=== PATIENT | female | born 1970 | race Two or more races ===

== ENCOUNTER → 2021-03-07 10:17 | Outpatient (BNVA) | payer OTHER, MEDICAID, SELFPAY | PROVIDERS: Visit Provider Family Medicine Adult Medicine | DX: M47.816 Spondylosis without myelopathy or radiculopathy, lumbar region (principal); M51.36 Other intervertebral disc degeneration, lumbar region | CPT/HCPCS: 99202 ==

== ENCOUNTER → 2021-03-21 09:19 | Outpatient (BNVA) | payer OTHER, MEDICAID, SELFPAY | PROVIDERS: Visit Provider Family Medicine Adult Medicine | DX: F11.99 Opioid use, unspecified with unspecified opioid-induced disorder (principal); M51.36 Other intervertebral disc degeneration, lumbar region; M47.816 Spondylosis without myelopathy or radiculopathy, lumbar region | CPT/HCPCS: 99212 ==

== ENCOUNTER → 2021-04-23 15:22 | Outpatient (BNVA) | payer OTHER, SELFPAY | PROVIDERS: Visit Provider Family Medicine Adult Medicine | DX: Z51.81 Encounter for therapeutic drug level monitoring (principal); M47.816 Spondylosis without myelopathy or radiculopathy, lumbar region; M51.36 Other intervertebral disc degeneration, lumbar region | CPT/HCPCS: 99212 ==

== ENCOUNTER → 2021-05-21 14:08 | Outpatient (BNVA) | payer OTHER, MEDICAID, SELFPAY | PROVIDERS: Visit Provider Family Medicine Adult Medicine | DX: G89.29 Other chronic pain (principal); M51.36 Other intervertebral disc degeneration, lumbar region; M47.816 Spondylosis without myelopathy or radiculopathy, lumbar region | CPT/HCPCS: 99212 ==

== ENCOUNTER → 2021-06-27 13:18 | Outpatient (BNVA) | payer OTHER, MEDICAID, SELFPAY | PROVIDERS: Visit Provider Family Medicine Adult Medicine | DX: Z51.81 Encounter for therapeutic drug level monitoring (principal); M51.36 Other intervertebral disc degeneration, lumbar region; M47.816 Spondylosis without myelopathy or radiculopathy, lumbar region | CPT/HCPCS: 99212 ==

== ENCOUNTER → 2021-07-30 14:26 | Outpatient (BNVA) | payer OTHER, MEDICAID, SELFPAY | PROVIDERS: PCP Physician Assistant Medical; Visit Provider Nurse Practitioner Family | DX: Z51.81 Encounter for therapeutic drug level monitoring (principal); M47.816 Spondylosis without myelopathy or radiculopathy, lumbar region; M25.571 Pain in right ankle and joints of right foot; G89.29 Other chronic pain | CPT/HCPCS: 99212 ==

== ENCOUNTER → 2021-08-28 13:06 | Outpatient (BNVA) | payer OTHER, MEDICAID, SELFPAY | PROVIDERS: PCP Physician Assistant Medical; Visit Provider Nurse Practitioner Family | DX: Z51.81 Encounter for therapeutic drug level monitoring (principal); F11.20 Opioid dependence, uncomplicated; M53.3 Sacrococcygeal disorders, not elsewhere classified; M25.571 Pain in right ankle and joints of right foot; M47.816 Spondylosis without myelopathy or radiculopathy, lumbar region; G89.29 Other chronic pain | CPT/HCPCS: 99212 ==

== ENCOUNTER → 2021-09-25 13:30 | Outpatient (BNVA) | payer OTHER, MEDICAID, SELFPAY | PROVIDERS: PCP Physician Assistant Medical; Visit Provider Nurse Practitioner Family | DX: M47.816 Spondylosis without myelopathy or radiculopathy, lumbar region (principal); M51.36 Other intervertebral disc degeneration, lumbar region; G89.29 Other chronic pain; M25.571 Pain in right ankle and joints of right foot; M53.3 Sacrococcygeal disorders, not elsewhere classified; Z88.1 Allergy status to other antibiotic agents; Z88.0 Allergy status to penicillin | CPT/HCPCS: 99212 ==

== ENCOUNTER 2021-10-10 10:09 | Day surgery (SDC) | payer OTHER, SELFPAY ==
[2021-10-04 20:08] VITALS: BMI 25.7
--- NOTE | 2021-10-09 10:19 | HO.ANESPROP2 ---
Documented by User: Macy Alexis NP 10/09/21 10:20 HPI - Anesthesia Eval Consult details Narrative: 50yo F for Right Diagnostic Sacroiliac Joint Innervation Injection PMFSH Active Problems Active Problems: All Active Problems (Updated 10/04/21 @ 20:10 by Radha Macdonald RN) Chronic pain of right ankle (Acute) Sacroiliac joint pain (Acute) Other intervertebral disc degeneration, lumbar region (Acute) Spondylosis without myelopathy or radiculopathy, lumbar region (Acute) Past Medical History Medical History Anxiety Back pain Depression Hypothyroidism Other intervertebral disc degeneration, lumbar region Right ankle sprain Smoker Spondylosis without myelopathy or radiculopathy, lumbar region Surgical History Surgical History H/O tubal ligation H/O: hysterectomy History of laparoscopic cholecystectomy Social History Social History Patient Tobacco Use Status: Current everyday Tobacco user Tobacco use type: Cigarette Cigarettes Per Day: 12 Smoked in Last 30 Days: Yes Use of substances other than those prescribed or required for medical reasons: No Are you DNR?: No Advance Directives: No Advance Directives Information Provided: No Advance Directives on File: No Recently lost weight without trying: No Nutrition Risks: No Nutritional Risk Patient : No Meds Allergies Allergy/AdvReac Type Severity Reaction Status Date / Time penicillin G Allergy Unknown Verified 09/25/21 13:49 Home Medications Medication Instructions Recorded Confirmed Last Taken Type duloxetine 30 mg capsule,delayed 30 mg PO DAILY 03/07/21 10/04/21 Unknown History release meloxicam 15 mg tablet 15 mg PO DAILY 03/07/21 10/04/21 10/07/21 History baclofen 10 mg tablet 1 tab PO TID PRN 10/04/21 10/04/21 Unknown History cyclobenzaprine 5 mg tablet 5 mg PO BEDTIME 10/04/21 10/04/21 Unknown History levothyroxine 100 mcg tablet 1 tab PO DAILY 10/04/21 10/04/21 10/03/21 History mirtazapine 7.5 mg tablet 7.5 mg PO DAILY 10/04/21 10/04/21 Unknown History sennosides 8.6 mg tablet (Senokot) 8.6 mg PO DAILY 10/04/21 10/04/21 Unknown History Exam Exam Date and Time: October 09, 2021 1019 Height,Weight and Vital Signs: Height 5 ft 2 in Weight 63.957 kg Assessment and Plan Assessment Anesthesia Assessment: Chart Reviewed Documented by User: Lizbet Rushing MD 10/10/21 10:46 [facility] Past Medical History Medical History Anxiety Back pain Depression Hypothyroidism Other intervertebral disc degeneration, lumbar region Right ankle sprain Smoker Spondylosis without myelopathy or radiculopathy, lumbar region Surgical History Surgical History H/O tubal ligation H/O: hysterectomy History of laparoscopic cholecystectomy History of Problems with Anesthesia: No Social History Social History Patient Tobacco Use Status: Current everyday Tobacco user Tobacco use type: Cigarette Cigarettes Per Day: 12 Smoked in Last 30 Days: Yes Use of substances other than those prescribed or required for medical reasons: No Are you DNR?: No Advance Directives: No Advance Directives Information Provided: No Advance Directives on File: No Recently lost weight without trying: No Nutrition Risks: No Nutritional Risk Patient : No Meds Allergies Allergy/AdvReac Type Severity Reaction Status Date / Time penicillin G Allergy Unknown Verified 09/25/21 13:49 Home Medications Medication Instructions Recorded Confirmed Last Taken Type duloxetine 30 mg capsule,delayed 30 mg PO DAILY 03/07/21 10/04/21 Unknown History release meloxicam 15 mg tablet 15 mg PO DAILY 03/07/21 10/04/21 10/07/21 History baclofen 10 mg tablet 1 tab PO TID PRN 10/04/21 10/04/21 Unknown History cyclobenzaprine 5 mg tablet 5 mg PO BEDTIME 10/04/21 10/04/21 Unknown History levothyroxine 100 mcg tablet 1 tab PO DAILY 10/04/21 10/04/21 10/03/21 History mirtazapine 7.5 mg tablet 7.5 mg PO DAILY 10/04/21 10/04/21 Unknown History sennosides 8.6 mg tablet (Senokot) 8.6 mg PO DAILY 10/04/21 10/04/21 Unknown History Exam Airway Mallampati Class: II TM Dist: >3cm Neck ROM: Full Loose/Missing/Broken Teeth: No Heart: RRR Lungs: CTA Assessment and Plan Assessment Anesthesia Assessment: Anesthesia Plan Discussed Final Anesthetic Review History of Problems with Anesthesia: No NPO: Yes ASA Class: II Final Preanesthetic Review: Meds/Allgs Chart Reviewed and Consent Obtained/Reviewed Patient Risk: Low Procedure Risk: Low Anesthetic Plan Anesthetic Plan: MAC: Disposition: Standard PACU
--- NOTE | ~2021-10-10 | FL_ITS ---
EXAMINATION: XR FLUOROSCOPY WITH IMAGES CLINICAL INFORMATION: Right SI joint pain. COMPARISON: None. TECHNIQUE: Fluoroscopy performed by Dr. Demetri Edmondson. Fluoroscopy time: 0.5 minutes DAP: 4.83 mGycm2 Images: 6 FINDINGS: There are contrast opacifying right SI joint, soft tissues adjacent to the right L5-S1, posterior right sacrum. Visualized bones are grossly unremarkable. FL/FL guidance in OR IMPRESSION: Fluoroscopy was provided to referring physician for pain management.
[2021-10-10 10:19] VITALS: BP 143/69; PULSE 62; RESP 19; TEMP 36.4; O2SAT 98
[2021-10-10] MEDS: Lactated Ringers 1,000 ML 100 ML IVCONT (10:33)
--- NOTE | 2021-10-10 11:17 | MHC.SHP ---
Pre-Procedural Eval Section A Date of Service: 10/10/21 The patient is an INPATIENT: No Changes since office visit: Yes Patient answered all questions The History & Physical has been completed within 30 days and I have reviewed it.: No Section B Chief Complaint: Sacroiliac Joint pain Details of Present Illness: as above Relevant Family History (Specify if Yes): No Relevant Social History: None Present Medications: see Short Stay Collaborative assessment Medical History: No relevant PMH History of Previous Operations: No relevant previous surgery Allergies: Allergies Allergy/AdvReac Type Severity Reaction Status Date / Time penicillin G Allergy Unknown Verified 09/25/21 13:49 Review of Systems Sugical H&P ROS: Negative: Constitution, Cardiovascular, Respiratory, Neurological, Psychiatric, Hem-Onc, Allergic/Immunologic, Gastrointestinal, Genitourinary, Musculoskeletal, Integumentary, Endocrine and Eyes/Ears/Nose/Throat Exam Surgical H&P Exam: Normal: HEENT, Normal: Heart, Normal: Lungs, Normal: Extremities, Normal: Abdomen, Normal: Skin and Normal: Neurological Plan Diagnosis/Plan: Unchanged I have reviewed the history and physical and performed a pertinent physical examination on my patient. No changes have occurred unless specified.
--- NOTE | 2021-10-10 11:19 | P.OP_ITS ---
Operative Note Operative Note Date of Service: 10/10/21 Narrative: ?SI joint innervation injection. Informed consent was explained thoroughly to the patient.? All questions about benefits and risks for the procedure were answered. Patient came to the operating room she was positioned prone on the operating table with the pillow under her pelvis.? [employer] monitors were applied and patient was deeply sedated.? Opioids and ketamine were avoided during the sedation. ? Her lower back and buttocks was prepped with ChloraPrep prepped and draped with sterile towels.? Sterilely draped C-arm was brought over the operating field and sq picture of patient's pelvis was demonstrated on the screen.? The point of interests were delineated 1st:? Point A?right S1 superior articular process at it's connection with sacral alae.? The point B was determined as the lowest point of the sacroiliac joint on sacral side of the joint.? The rest of the point of interests were determined as the line between the point B and the point C . ? The needles between point A and point B were planned to insert in the straight line in palisade fashion.? The skin in the projection of the points of interest were injected with small amount of local lidocaine 2%, mixed with bupivacaine 0.5% 1-1 total of 10 cc, after that 22 gauge 3-1/2 inch needles were driven to the point of interest in tunnel vision fashion. ? When needles gently contacted the bone- the each point of interest small amount of contrast was injected demonstrating no intravascular and no intrathecal uptake of the contrast. After that bupivacaine 0.5% less than 1 cc was injected each needle. Upon completion of the injections the needles were removed sterile dressing was applied.? The patient tolerated procedure well.? She went outside of the o perating room to PACU where she recovered uneventfully.? She went home without immediate complications.
[2021-10-10 12:10] VITALS: BP 132/64; PULSE 60; RESP 18; TEMP 36.8; O2SAT 98
--- NOTE | 2021-10-10 12:20 | PM.OP ---
Brief Operative Note Date of Service: 10/10/21 Pre-op diagnosis: Sacroiliitis Post-op diagnosis: same Procedure: Right sacroiliac joint diagnostic innervation injection Implants: None permanent Surgeon: Demetri Edmondson MD Anesthesia: GETA Was an Director Clinical Applications used for this Procedure?: No Estimated blood loss (mL): 0 Pathology: none sent Condition: stable Disposition: PACU
[2021-10-10 12:25] VITALS: BP 120/54; PULSE 56; RESP 16; TEMP 36.4; O2SAT 97
== END 2021-10-10 13:20 | disposition home or self-care (01) ==
PROVIDERS: PCP Physician Assistant; Visit Provider Anesthesiology
PROC: (CPT 64451; principal; 2021-10-10 11:30)
DX: M53.3 Sacrococcygeal disorders, not elsewhere classified (principal); G89.29 Other chronic pain; M54.50 Low back pain, unspecified; M25.571 Pain in right ankle and joints of right foot; M47.816 Spondylosis without myelopathy or radiculopathy, lumbar region; R26.9 Unspecified abnormalities of gait and mobility; Z91.81 History of falling; Z79.891 Long term (current) use of opiate analgesic; Z88.0 Allergy status to penicillin
CPT/HCPCS: 64451; J2250; J3010; Q9967

== ENCOUNTER → 2021-10-16 11:41 | Outpatient (BNVA) | payer OTHER, SELFPAY | PROVIDERS: PCP Physician Assistant Medical; Visit Provider Nurse Practitioner Family | DX: Z51.81 Encounter for therapeutic drug level monitoring (principal); F11.20 Opioid dependence, uncomplicated; M53.3 Sacrococcygeal disorders, not elsewhere classified; M25.571 Pain in right ankle and joints of right foot; G89.29 Other chronic pain; M47.816 Spondylosis without myelopathy or radiculopathy, lumbar region | CPT/HCPCS: 99212 ==

== ENCOUNTER → 2021-11-13 11:04 | Outpatient (BNVA) | payer OTHER, SELFPAY | PROVIDERS: PCP Physician Assistant Medical; Visit Provider Nurse Practitioner Family | DX: Z51.81 Encounter for therapeutic drug level monitoring (principal); F11.20 Opioid dependence, uncomplicated; M53.3 Sacrococcygeal disorders, not elsewhere classified; M25.571 Pain in right ankle and joints of right foot; M47.816 Spondylosis without myelopathy or radiculopathy, lumbar region; G89.29 Other chronic pain | CPT/HCPCS: 99212 ==

== ENCOUNTER → 2021-12-11 13:22 | Outpatient (BNVA) | payer OTHER, SELFPAY | PROVIDERS: PCP Physician Assistant Medical; Visit Provider Nurse Practitioner Family | DX: Z79.899 Other long term (current) drug therapy (principal) ==

== ENCOUNTER → 2022-01-08 14:30 | Outpatient (BNVA) | payer OTHER, SELFPAY | PROVIDERS: PCP Physician Assistant Medical; Visit Provider Nurse Practitioner Family | DX: Z79.891 Long term (current) use of opiate analgesic (principal) | CPT/HCPCS: 99211 ==

== ENCOUNTER → 2022-02-05 12:56 | Outpatient (BNVA) | payer OTHER, SELFPAY | PROVIDERS: PCP Physician Assistant Medical; Visit Provider Nurse Practitioner Family | DX: M53.3 Sacrococcygeal disorders, not elsewhere classified (principal); M25.571 Pain in right ankle and joints of right foot; G89.29 Other chronic pain; M47.816 Spondylosis without myelopathy or radiculopathy, lumbar region; M79.2 Neuralgia and neuritis, unspecified; M62.830 Muscle spasm of back | CPT/HCPCS: 99212 ==

== ENCOUNTER → 2022-04-14 09:01 | Outpatient (BNVA) | payer OTHER, SELFPAY | PROVIDERS: PCP Physician Assistant Medical; Visit Provider Internal Medicine | DX: M79.7 Fibromyalgia (principal); M62.830 Muscle spasm of back | CPT/HCPCS: 99212 ==

== ENCOUNTER → 2022-12-29 13:05 | Outpatient (BNVA) | payer MEDICAID, SELFPAY | PROVIDERS: PCP Physician Assistant Medical; Visit Provider Internal Medicine | DX: M47.816 Spondylosis without myelopathy or radiculopathy, lumbar region (principal) | CPT/HCPCS: 99212 ==

== ENCOUNTER 2023-02-06 11:07 | Outpatient (AMB) | payer MEDICAID, SELFPAY ==
--- NOTE | 2023-02-06 11:13 | MHC.OFFVIS ---
Intake Vital Signs 02/06/23 11:14 Height 5 ft 2 in Weight 167 lb BMI 30.5 BP 168/74 H Blood Pressure Location Lt brachial Position Sitting Respiration 14 Pulse 53 Pulse Source Pulse Oximeter Intake Visit Reasons: Review of [facility] Records/ Procedure Discussion Allergies penicillin G Allergy (Verified 02/06/23 11:16) Unknown Medication List - Last Reconciled 02/06/23 by Swetha Reynolds LPN celecoxib (Celebrex) 200 mg PO BID duloxetine 30 mg PO DAILY levothyroxine 1 tab PO DAILY lorazepam 0.5 mg PO BEDTIME PRN mirtazapine 7.5 mg PO DAILY naloxone 4 mg/actuation (Narcan) 4 mg intranasal Q2M PRN pregabalin 75 mg PO BID HPI Review of [facility] Records/ Procedure Discussion HPI Details 52-year-old female presenting today for a procedure discussion. ? The patient reports shoulder pain. She also reports pain in her legs. She states that she is bedridden after walking with her son. She is currently on Lyrica and performs home exercises for pain management. She has ligament issues in the middle of her foot and has seen a gang hemstitching machine operator for evaluation. She has not tried lidocaine patches for her pain. [facility] Medical History Anxiety Back pain Depression Hypothyroidism Other intervertebral disc degeneration, lumbar region Right ankle sprain Smoker Spondylosis without myelopathy or radiculopathy, lumbar region Surgical History H/O tubal ligation H/O: hysterectomy History of laparoscopic cholecystectomy Social History Patient Tobacco Use Status: Current everyday Tobacco user Tobacco use type: Cigarette Cigarettes Per Day: 12 Review of Systems Const All systems reviewed & are unremarkable except as noted in HPI and below Physical Exam Vital Signs: Last Vital Signs Pulse 53 02/06/23 11:14 Resp 14 02/06/23 11:14 BP 168/74 H 02/06/23 11:14 BMI result Body Mass Index 30.5 General: Appears afebrile. Alert and oriented. Mood and affect appropriate. Follows and participates in conversation appropriately. Respiratory effort is unlabored. Able to transition from sit to stand unassisted. Ambulates with bilaterally normal heel strike and toe off. Tenderness to superficial palpation throughout the cervical, thoracic and lumbar spine areas. Results Reviewed Results Reviewed: 08/06/22: MR LUMBAR SPINE Assessment & Plan Assessment & Plan (1) Fibromyalgia: Code(s): M79.7 - Fibromyalgia (2) Muscle spasm of back: Code(s): M62.830 - Muscle spasm of back Plan Exhausted multiple injection therapies include facet injections and sacroiliac joint injections without relief. Symptoms likely secondary to fibromyalgia and superficial muscular tenderness. Encouraged the patient to perform home exercises and swim to help with joint pain. Also continue taking Lyrica 75 mg PO B.I.D. Scribed for Dr. Hyde by Andreas Naik, medical typist, on 02/06/2023. I, Dr. Hyde, have personally reviewed and agree with the information entered by the scribe. Medications: Refilled pregabalin 75 mg PO BID 60 caps 5RF Coding Level of Care Code Est Pt Level 3 (39404) Diagnoses Fibromyalgia M79.7 Muscle spasm of back M62.830
[2023-02-06 11:14] VITALS: BP 168/74; PULSE 53; RESP 14; BMI 30.5
== END 2023-02-06 11:26 | disposition home or self-care (01) ==
PROVIDERS: PCP Physician Assistant Medical; Visit Provider Internal Medicine
DX: M79.7 Fibromyalgia (principal); M62.830 Muscle spasm of back
CPT/HCPCS: 99213

== ENCOUNTER → 2023-02-06 11:07 | Outpatient (BNVA) | payer MEDICAID, SELFPAY | PROVIDERS: PCP Physician Assistant Medical; Visit Provider Internal Medicine | DX: M79.7 Fibromyalgia (principal); M62.830 Muscle spasm of back | CPT/HCPCS: 99212 ==

== ENCOUNTER 2023-03-20 11:01 | Outpatient (AMB) | payer MEDICAID, SELFPAY ==
[2023-03-20 11:09] VITALS: BP 138/82; PULSE 59; RESP 14; O2SAT 97; BMI 30.2
--- NOTE | 2023-03-20 11:09 | A.OFFVIS_ITS ---
Intake Vital Signs 03/20/23 11:09 Height 5 ft 2 in Weight 165 lb BMI 30.2 BP 138/82 Blood Pressure Location Rt brachial Position Sitting Respiration 14 Pulse 59 Pulse Source Pulse Oximeter Pulse Oximetry (%) 97 Oxygen Delivery Method Room Air Intake Visit Reasons: Follow up/Fibromyalgia Allergies penicillin G Allergy (Verified 03/20/23 11:10) Unknown Medication List - Last Reconciled 03/20/23 by Swetha Reynolds LPN celecoxib (Celebrex) 200 mg PO BID duloxetine 30 mg PO DAILY levothyroxine 1 tab PO DAILY lorazepam 0.5 mg PO BEDTIME PRN mirtazapine 7.5 mg PO DAILY naloxone 4 mg/actuation (Narcan) 4 mg intranasal Q2M PRN pregabalin 75 mg PO BID HPI Follow up/Fibromyalgia HPI Details 52-year-old female is presenting today for a follow-up of fibromyalgia. She reports neck pain. She also reports shoulder pain secondary to neck pain. She has not tried physical therapy in the past for neck pain. She never had a neck MRI in the past. [facility] Medical History Anxiety Back pain Depression Hypothyroidism Other intervertebral disc degeneration, lumbar region Right ankle sprain Smoker Spondylosis without myelopathy or radiculopathy, lumbar region Surgical History H/O tubal ligation H/O: hysterectomy History of laparoscopic cholecystectomy Social History Patient Tobacco Use Status: Current everyday Tobacco user Tobacco use type: Cigarette Cigarettes Per Day: 12 Review of Systems Const All systems reviewed & are unremarkable except as noted in HPI and below Physical Exam Vital Signs: Last Vital Signs Pulse 59 03/20/23 11:09 Resp 14 03/20/23 11:09 BP 138/82 03/20/23 11:09 Pulse Ox 97 03/20/23 11:09 Oxygen Delivery Method Room Air 03/20/23 11:09 BMI result Body Mass Index 30.2 General: Appears afebrile. Alert and oriented. Mood and affect appropriate. Follows and participates in conversation appropriately. Respiratory effort is unlabored. Able to transition from sit to stand unassisted. Ambulates with bilaterally normal heel strike and toe off. Results Reviewed Results Reviewed: No imaging is available for review. Assessment & Plan Assessment & Plan (1) Cervical radiculopathy: Code(s): M54.12 - Radiculopathy, cervical region Plan A refill of pregabalin was provided to the patient today. A referral was provided to physical therapy for cervical radiculopathy. The patient will receive a call to schedule an appointment. She will visit [facility] and then return to the clinic in three months. If she does not get relief for her cervical radicular symptoms, we will consider an MRI scan for further evaluation.? The patient will follow-up in three months. Scribed for Dr. Hyde by Andreas Naik, medical laboratory specialist, on 03/20/2023. I, Dr. Hyde, have personally reviewed and agree with the information entered by the scribe. Orders: Orders PT Evaluation and Treatment 03/20/23 M54.12 - Radiculopathy, cervical region Medications: Refilled pregabalin 75 mg PO BID 60 caps 5RF Coding Level of Care Code Est Pt Level 3 (64605) Diagnoses Cervical radiculopathy M54.12
== END 2023-03-20 11:19 | disposition home or self-care (01) ==
PROVIDERS: PCP Physician Assistant Medical; Visit Provider Internal Medicine
DX: M54.12 Radiculopathy, cervical region (principal)
CPT/HCPCS: 99213

== ENCOUNTER → 2023-03-20 11:01 | Outpatient (BNVA) | payer MEDICAID, SELFPAY | PROVIDERS: PCP Physician Assistant Medical; Visit Provider Internal Medicine | DX: M54.12 Radiculopathy, cervical region (principal) | CPT/HCPCS: 99212 ==

== ENCOUNTER 2023-12-03 13:03 | Outpatient (AMB) | payer MEDICARE, MEDICAID, SELFPAY ==
--- NOTE | 2023-12-03 13:09 | MHC.OFFVIS ---
Vital Signs 12/03/23 13:12 Height 5 ft 2 in Weight 166 lb BMI 30.4 BP 138/66 Blood Pressure Location Lt brachial Position Sitting Respiration 16 Pulse 53 Pulse Source Pulse Oximeter Pulse Oximetry (%) 98 Oxygen Delivery Method Room Air Intake Visit Reasons: CERVICALGIA Intake Note: Patient she was accompanied by son Derian. She comes in for neck pain. Reports pain 05/05. ? Allergies penicillin G Allergy (Verified 12/03/23 13:12) Unknown HPI Comments Details: Ms. Chandler is very pleasant 53 years old female who presents in my office today with her son. Her son is fluent in [place]i and Vietnamese and he was able to help us to interpret the conversation. The patient complains on pain in the left side of the chest. The patient reports that she visited emergency room few times to get help with this pain. She previously was complaining on cervicalgia so she was sent for MRI of the cervical spine and results of the MRI are dictated as below. However with careful questioning today she admitted that her pain in the neck is not related to the pain in the left chest, she reported when her pain in the chest is stronger her pain in the neck might be non-existent and vice versa. She in the emergency room was ruled out with cardiac pathology. She went for [facility] and had x-ray of the left shoulder there. She told me that she will bring this x-ray results to me as well as the disc of the x-ray images. I will schedule appointment with her in 1 week. She also requests to increase the dose of Lyrica since it helps her widespread pain due to fibromyalgia. I will make it 100 mg b.i.d.. [facility] Medical History Anxiety Back pain Depression Hypothyroidism Other intervertebral disc degeneration, lumbar region Right ankle sprain Smoker Spondylosis without myelopathy or radiculopathy, lumbar region Surgical History H/O tubal ligation H/O: hysterectomy History of laparoscopic cholecystectomy Social History Comment: BRACE Patient Tobacco Use Status: Current everyday Tobacco user Tobacco use type: Cigarette Cigarettes Per Day: 12 Review of Systems Const All systems reviewed & are unremarkable except as noted in HPI and below ENT Reports Normal hearing present Neuro Reports Normal hearing present, Denies Abnormal speech present and Denies Sensory deficit (Neuro) Physical Exam Const General: no acute distress Orientation/consciousness: patient oriented x3 Eyes General: appearance normal, both eyes and all related structures Pupils: Equal, round and reactive pupils present EOM: EOMs intact bilaterally Neck Neck: Yes full ROM Chest Other: She complains on the pain in the left side of the chest. Palpation of the left shoulder joint in the projection of deltoid muscle is very painful. The range of motion of the left shoulder is significantly limited. Resp Effort & Inspection: normal respiratory effort, able to speak in complete sentences, normal respiratory pattern, no audible wheezes and no cough Cardio Jugular venous distension: no JVD GI Inspection: Yes normal to inspection Neuro General: patient oriented x3 and gait normal Cranial nerves: Yes CN's II-XII intact bilaterally, Yes Equal, round and reactive pupils present, Yes Normal hearing present and Yes Ability to bilaterally elevate shoulders present Speech: No Abnormal speech present Gait exam (Neuro): Normal gait present Motor exam (neuro): 5/5 motor strength present throughout Sensory Exam: No Sensory deficit (Neuro) Extrem General: No pedal edema Psych Speech and movement: Normal speech and movement present Affect: normal affect Attitude: cooperative Thought process: Normal thought process present Thought content: Normal thought content present Insight: Good insight present (Psych) Judgement: Good judgement present (Psych) Results Reviewed Results Reviewed: MRI of the cervical spine. 09/19/2023. Findings alignment, vertebra, marrow, discs there is reversal of the cervical lordosis. Otherwise alignment is maintained. Vertebral body heights are preserved. There are endplate osteophytes at mid level as well as minimal Modic 2 type changes degenerative endplate marrow signal changes at C4-C5 and C6-C7. Mild loss of intervertebral disc height from C3-C4 through C5-C6 which is most pronounced at C3-C4 level. Posterior fossa and cord: Visualized posterior fossa is normal. The cervical cord is normal in signal and caliber. Paraspinal tissue soft tissues of the neck are unremarkable. Major cervical flow voids are preserved. Detailed finding by level : C2-C3: Small central disc protrusion. Left-sided facet arthropathy. No significant canal stenosis or neural foraminal narrowing. W4-[id number]-[id number]-based osteophyte complex with facet arthropathy. No significant canal stenosis. Mild bilateral neural foraminal narrowing. C4-C5-broad disc osteophyte complex with facet arthropathy no significant canal stenosis or neural foraminal narrowing. C5-C6-broad disc osteophyte complex with facet arthropathy no significant canal stenosis. Mild bilateral neural foraminal narrowing C6-C7. Broad disc osteophyte complex with uncovertebral joint spurring right-sided facet arthropathy. No significant canal stenosis. [id number] left and moderate to severe right neural foraminal narrowing. C7-T1. No significant canal stenosis or neural foraminal narrowing. Assessment & Plan Assessment & Plan (1) Cervical radiculopathy: Code(s): M54.12 - Radiculopathy, cervical region Category: Medical (2) Fibromyalgia: Code(s): M79.7 - Fibromyalgia Category: Medical (3) Arthritis of shoulder region, left: Code(s): M19.012 - Primary osteoarthritis, left shoulder Category: Medical Plan This patient on the MRI have severe right-sided neural foraminal narrowing. However she complains on pain on the left chest in the projection in the left pectoralis major muscle. She visited the emergency room twice and I presume that cardiac pathology was cleared out. She denies connection of this pain with cervicalgia. She reports that pain is very severe. She requests me to increase the dose of Lyrica she is receiving in this office with prior prescriptions. I agreed to do that. She had images of the right and left shoulders in [facility] office. She will bring me the images and I will see her in 1 week. I will start her on Lyrica 100 mg b.i.d.. Medications: New pregabalin 100 mg PO BID 30 days 60 caps 5RF Discontinued pregabalin Discontinued Reason: Doctor's Order 75 mg PO BID 60 caps 5RF Patient Instructions: I here by testify that I spent 30 minutes in conversation with this patient as well as evaluating her prior records diagnostic studies and organizing this note. Coding Level of Care Code Est Pt Level 4 (39130) Diagnoses Cervical radiculopathy M54.12 Fibromyalgia M79.7 Arthritis of shoulder region, left M19.012
[2023-12-03 13:12] VITALS: BP 138/66; PULSE 53; RESP 16; O2SAT 98; BMI 30.4
== END 2023-12-03 13:20 | disposition home or self-care (01) ==
PROVIDERS: PCP Physician Assistant; Referring Provider Physician Assistant; Visit Provider Anesthesiology
DX: M54.12 Radiculopathy, cervical region (principal); M79.7 Fibromyalgia; M19.012 Primary osteoarthritis, left shoulder
CPT/HCPCS: 99214

== ENCOUNTER → 2023-12-03 13:03 | Outpatient (BNVA) | payer MEDICAID, SELFPAY | PROVIDERS: PCP Physician Assistant; Visit Provider Anesthesiology | DX: M54.12 Radiculopathy, cervical region (principal); M79.7 Fibromyalgia; M19.012 Primary osteoarthritis, left shoulder | CPT/HCPCS: 99212 ==

== ENCOUNTER → 2023-12-09 13:01 | Outpatient (BNVA) | payer MEDICAID, SELFPAY | PROVIDERS: PCP Physician Assistant; Visit Provider Anesthesiology | DX: M19.012 Primary osteoarthritis, left shoulder (principal); M54.12 Radiculopathy, cervical region; M79.7 Fibromyalgia | CPT/HCPCS: 99212 ==

== ENCOUNTER 2023-12-15 13:23 | Outpatient (REF) | payer MEDICARE, MEDICAID, SELFPAY ==
--- NOTE | ~2023-12-15 | XR_ITS ---
EXAMINATION: XR SHOULDER, LEFT CLINICAL INFORMATION: Primary osteoarthritis left shoulder COMPARISON: None available. TECHNIQUE: AP external rotation, Grashey, scapular Y, and axillary views of the left shoulder. FINDINGS: Mild degenerative changes in the acromioclavicular and glenohumeral joints. Acromioclavicular and glenohumeral alignment is preserved. No abnormal soft tissue calcifications identified adjacent to the humeral head to suggest rotator cuff pathology. XR/XR shoulder LT min 2V IMPRESSION: Mild degenerative changes.
== END 2023-12-15 13:24 | disposition home or self-care (01) ==
LOC: HO.XRAY 13:23
PROVIDERS: PCP Physician Assistant; Visit Provider Anesthesiology
DX: M19.012 Primary osteoarthritis, left shoulder (principal)
CPT/HCPCS: 73030

== ENCOUNTER → 2023-12-17 11:21 | Outpatient (BNVA) | payer MEDICAID, SELFPAY | PROVIDERS: PCP Physician Assistant; Visit Provider Anesthesiology ==

== ENCOUNTER 2024-01-06 14:56 | Outpatient (AMB) | payer MEDICARE, MEDICAID, SELFPAY ==
--- NOTE | 2024-01-06 14:56 | MHC.OFFVIS ---
Intake Visit Reasons: Discuss Xray results Allergies penicillin G Allergy (Verified 01/06/24 14:57) Unknown HPI Comments Details: Ms. Chandler is on the phone today with me with her son who helped us to maintain this conversation is Taiwanese. She was sent for x-ray of the left shoulder joint and the x-ray demonstrated both acromioclavicular and glenohumeral joint mild arthritis. Although the arthritis is mild on x-ray it could be possible that the arthritis is her pain generators. I offered the patient today to go for therapeutic left glenohumeral and acromioclavicular joints on the left. She has not diabetic so we can give her full dose steroids. Patient agreed to go for the procedure without sedation. I will schedule it accordingly. The follow-up will be after the procedure in 1 month. Prior : very pleasant 53 years old female who presents in my office today with her son. Her son is fluent in Armenian and Taiwanese and he was able to help us to interpret the conversation. The patient complains on pain in the left side of the chest. The patient reports that she visited emergency room few times to get help with this pain. She previously was complaining on cervicalgia so she was sent for MRI of the cervical spine and results of the MRI are dictated as below. However with careful questioning today she admitted that her pain in the neck is not related to the pain in the left chest, she reported when her pain in the chest is stronger her pain in the neck might be non-existent and vice versa. She in the emergency room was ruled out with cardiac pathology. She went for [facility] orthopedic surgery and had x-ray of the left shoulder there. She told me that she will bring this x-ray results to me as well as the disc of the x-ray images. I will schedule appointment with her in 1 week. She also requests to increase the dose of Lyrica since it helps her widespread pain due to fibromyalgia. I will make it 100 mg b.i.d.. [facility] Medical History Anxiety Back pain Depression Hypothyroidism Other intervertebral disc degeneration, lumbar region Right ankle sprain Smoker Spondylosis without myelopathy or radiculopathy, lumbar region Surgical History H/O tubal ligation H/O: hysterectomy History of laparoscopic cholecystectomy Social History Comment: BRACE Patient Tobacco Use Status: Current everyday Tobacco user Tobacco use type: Cigarette Cigarettes Per Day: 12 Review of Systems Const All systems reviewed & are unremarkable except as noted in HPI and below Telehealth Telehealth Telehealth Platform: Telephone Location of provider rendering services: practice address Location of patient: address on file Patient Identification confirmed using: Name, : Yes Telehealth method: voice only Patient verbally consented to treatment: Yes Patient verbally consented to billing insurance company: Yes Patient informed of any privacy concerns related to visit: Yes Results Reviewed Results Reviewed: : 12/15/23 Procedure(s): XR shoulder LT min 2V CLINICAL INFORMATION: Primary osteoarthritis left shoulder COMPARISON: None available. TECHNIQUE: AP external rotation, Grashey, scapular Y, and axillary views of the left shoulder. FINDINGS: Mild degenerative changes in the acromioclavicular and glenohumeral joints. Acromioclavicular and glenohumeral alignment is preserved. No abnormal soft tissue calcifications identified adjacent to the humeral head to suggest rotator cuff pathology. Assessment & Plan Assessment & Plan (1) Cervical radiculopathy: Code(s): M54.12 - Radiculopathy, cervical region Category: Medical (2) Fibromyalgia: Code(s): M79.7 - Fibromyalgia Category: Medical (3) Arthritis of shoulder region, left: Code(s): M19.012 - Primary osteoarthritis, left shoulder Category: Medical Plan This patient on the MRI has severe right-sided neural foraminal narrowing. However she complains on pain on the left chest in the projection in the left pectoralis major muscle. She visited the emergency room twice and I presume that cardiac pathology was cleared out. She denies connection of this pain with cervicalgia. She reports that pain is very severe. She was sent for the x-ray of the left shoulder results are as above. I will schedule this patient for both AC and GH left injection with steroids. I will evaluate this patient after 1 month. Patient Instructions: I here by testify that I spent 15 minutes in conversation with this patient as well as planning her care and organizing this note. Coding Level of Care Code Tele Est Pt Level 3 (74245) Diagnoses Cervical radiculopathy M54.12 Fibromyalgia M79.7 Arthritis of shoulder region, left M19.012
== END 2024-01-06 15:05 | disposition home or self-care (01) ==
LOC: HO.PMC 14:56
PROVIDERS: PCP Physician Assistant; Visit Provider Anesthesiology
DX: M54.12 Radiculopathy, cervical region (principal); M79.7 Fibromyalgia; M19.012 Primary osteoarthritis, left shoulder
CPT/HCPCS: 99213

== ENCOUNTER → 2024-01-06 14:56 | Outpatient (BNVA) | payer MEDICAID, SELFPAY | PROVIDERS: PCP Physician Assistant; Visit Provider Anesthesiology ==

== ENCOUNTER 2024-05-03 06:09 | Outpatient (REF) | payer OTHER, SELFPAY | END 2024-05-03 06:10 | disposition home or self-care (01) | LOC: CF 06:09 | PROVIDERS: Visit Provider Anesthesiology | DX: M19.012 Primary osteoarthritis, left shoulder (principal); M25.511 Pain in right shoulder | CPT/HCPCS: 20605; 20610; J2003; J2795; J3301; Q9967 ==

== ENCOUNTER 2024-05-03 12:44 | Outpatient (AMB) | payer OTHER, SELFPAY ==
--- NOTE | 2024-05-03 12:50 | A.OFFVIS_ITS ---
Vital Signs 05/03/24 13:13 Height 5 ft 2 in Weight 161 lb 3 oz BMI 29.5 BP 178/68 H Blood Pressure Location Lt brachial Position Sitting Respiration 16 Pulse 53 Pulse Source Pulse Oximeter Pulse Oximetry (%) 100 Oxygen Delivery Method Room Air Comment pre-op Intake Visit Reasons: LT ACROMIOCLAVICULAR & GLENOHUMERAL INJECTIONS Salesforce Administrator Required: Yes Salesforce Administrator Services: Salesforce Administrator Present Salesforce Administrator Name: Ibisnatalie Pattena Allergies penicillin G Allergy (Verified 05/03/24 13:14) Unknown [facility] Medical History Anxiety Back pain Depression Hypothyroidism Other intervertebral disc degeneration, lumbar region Right ankle sprain Smoker Spondylosis without myelopathy or radiculopathy, lumbar region Surgical History H/O tubal ligation H/O: hysterectomy History of laparoscopic cholecystectomy Social History Comment: BRACE Patient Tobacco Use Status: Current everyday Tobacco user Tobacco use type: Cigarette Cigarettes Per Day: 12 Physical Exam Vital Signs: Last Vital Signs Pulse 53 05/03/24 13:13 Resp 16 05/03/24 13:13 BP 178/68 H 05/03/24 13:13 Pulse Ox 100 05/03/24 13:13 Oxygen Delivery Method Room Air 05/03/24 13:13 BMI result Body Mass Index 29.5 Assessment & Plan Assessment & Plan (1) Arthritis of shoulder region, left: Code(s): M19.012 - Primary osteoarthritis, left shoulder Category: Medical (2) Right shoulder pain: Code(s): M25.511 - Pain in right shoulder Category: Medical (3) Acromioclavicular joint arthritis: Code(s): M19.019 - Primary osteoarthritis, unspecified shoulder Category: Medical (4) Arthritis of glenohumeral joint: Code(s): M19.019 - Primary osteoarthritis, unspecified shoulder Category: Medical Plan: Left therapeutic glenohumeral joint injection, left therapeutic acromioclavicular joint injection Informed consent was explained thoroughly to the patient.? All questions about benefits and risks for the procedure were answered.report manager targeting acquisition officer Ibis Oh helped us to maintain conversation is Botswanan. Patient came to the operating room and was positioned prone on the operating table with the pillow under left shoulder The left shoulder of the patient were prepped with ChloraPrep prepped and draped with sterile self adhesive utility towels.? C-arm was brought over the operating field and sq picture of patient's glenohumeral joint was obtained on the screen. The superior medial portion of the joint was chosen as the target of the injection. The projection of the joint silhouette on the skin was chosen as initial injection target of mixture of lidocaine 2% and ropivacaine 0.5% one-to-one. After that 22 gauge 3-1/2 inch spinal needle was inserted through the skin wheal and advanced to were the joint capsule. When needle entered the joint capsule injection of the contrast was performed demonstrating intra-articular spread of the contrast. t.? After that 4 cc. of ropivacaine 0.5% mixed with Kenalog 30 mg was injected in the joint. Upon completion of the injection sterile Band-Aid was applied. After that the patient was repositioned supine on the operating table, left acromioclavicular joint was demonstrated on the screen of the C-arm. Using 25 gauge 1-1/2 inch hypodermic needle injection of the ropivacaine 0.5% mixed with Kenalog 10 mg was performed under direct fluoroscopic guidance. Upon completion of the injection the needle was withdrawn and sterile Band-Aid was applied. The patient tolerated the procedure well. She was taken outside of the operating room to recovery room where she recovered uneventfully. Plan This patient on the MRI has severe right-sided neural foraminal narrowing. However she complains on pain on the left chest in the projection in the left pectoralis major muscle. She visited the emergency room twice and I presume that cardiac pathology was cleared out. She denies connection of this pain with cervicalgia. She reports that pain is very severe. She was sent for the x-ray of the left shoulder results are as above. I will schedule this patient for both AC and GH left injection with steroids. I will evaluate this patient after 1 month. Orders: Orders FL guidance in treatment room Today M19.012 - Primary osteoarthritis, left shoulder Coding Level of Care Code Procedure Only Diagnoses Arthritis of shoulder region, left M19.012 Right shoulder pain M25.511 Acromioclavicular joint arthritis M19.019 Arthritis of glenohumeral joint M19.019
[2024-05-03 13:13] VITALS: BP 178/68; PULSE 53; RESP 16; O2SAT 100; BMI 29.5
== END 2024-05-03 14:11 | disposition home or self-care (01) ==
LOC: HO.PMCPRC 12:44
PROVIDERS: PCP Physician Assistant; Visit Provider Anesthesiology
DX: M19.012 Primary osteoarthritis, left shoulder (principal); M25.511 Pain in right shoulder; M19.019 Primary osteoarthritis, unspecified shoulder
CPT/HCPCS: 20605; 20610; 77002

== ENCOUNTER 2024-05-16 14:05 | Outpatient (AMB) | payer OTHER, SELFPAY ==
--- NOTE | 2024-05-16 14:08 | MHC.OFFVIS ---
Vital Signs 05/16/24 14:14 Height 5 ft 2 in Weight 161 lb BMI 29.4 BP 160/84 H Blood Pressure Location Lt brachial Position Sitting Respiration 16 Pulse 50 Pulse Source Pulse Oximeter Pulse Oximetry (%) 98 Oxygen Delivery Method Room Air Intake Visit Reasons: LT ACROMIOCLAVICULAR & GLENOHUMERAL INJECTIONS Intake Note: Patient comes in for post-op. Reports pain 03/05. Communications Engineer Required: Yes Communications Engineer Services: Communications Engineer Present Communications Engineer Name: Alma Rosa Lockwood [id number] Allergies penicillin G Allergy (Verified 05/16/24 14:15) Unknown HPI Comments Details: Ms. Chandler is in my office with continuous complain on the left shoulder pain. She reports pain in the left shoulder and pain in the left lateral chest. She received diagnostic and therapeutic acromioclavicular nerve injection as well as intra-articular glenohumeral joint injection on the left and she reported no improvement with this injections. I offered her today to perform diagnostic interscalene nerve block in the left in the attempt to alleviate her pain. The interscalene nerve block will alleviate her pain possibility of treating her condition with sprint PNS versus curonix PNS will be discussed with the patient in the future. Last time she was prescribed Lyrica and she reported Lyrica did not help her pain. I will recommend her to stop this medication. She can not continue NSAIDs and Tylenol to help her pain. Prior : very pleasant 53 years old female who presents in my office today with her son. Her son is fluent in Portuguese and Croatian and he was able to help us to interpret the conversation. The patient complains on pain in the left side of the chest. The patient reports that she visited emergency room few times to get help with this pain. She previously was complaining on cervicalgia so she was sent for MRI of the cervical spine and results of the MRI are dictated as below. However with careful questioning today she admitted that her pain in the neck is not related to the pain in the left chest, she reported when her pain in the chest is stronger her pain in the neck might be non-existent and vice versa. She in the emergency room was ruled out with cardiac pathology. She went for [place] orthopedic surgery and had x-ray of the left shoulder there. She told me that she will bring this x-ray results to me as well as the disc of the x-ray images. I will schedule appointment with her in 1 week. She also requests to increase the dose of Lyrica since it helps her widespread pain due to fibromyalgia. I will make it 100 mg b.i.d.. [facility] Medical History Anxiety Back pain Depression Hypothyroidism Other intervertebral disc degeneration, lumbar region Right ankle sprain Smoker Spondylosis without myelopathy or radiculopathy, lumbar region Surgical History H/O tubal ligation H/O: hysterectomy History of laparoscopic cholecystectomy Social History Comment: BRACE Patient Tobacco Use Status: Current everyday Tobacco user Tobacco use type: Cigarette Cigarettes Per Day: 12 Review of Systems Const All systems reviewed & are unremarkable except as noted in HPI and below ENT Reports Normal hearing present Neuro Reports Normal hearing present, Denies Abnormal speech present and Denies Sensory deficit (Neuro) Physical Exam Vital Signs: Last Vital Signs Pulse 50 05/16/24 14:14 Resp 16 05/16/24 14:14 BP 160/84 H 05/16/24 14:14 Pulse Ox 98 05/16/24 14:14 Oxygen Delivery Method Room Air 05/16/24 14:14 BMI result Body Mass Index 29.4 Const General: no acute distress Orientation/consciousness: patient oriented x3 Eyes General: appearance normal, both eyes and all related structures Pupils: Equal, round and reactive pupils present EOM: EOMs intact bilaterally Neck Neck: Yes full ROM Chest Other: She complains on the pain in the left side of the chest. Palpation of the left shoulder joint in the projection of deltoid muscle is very painful. The range of motion of the left shoulder is significantly limited. Resp Effort & Inspection: normal respiratory effort, able to speak in complete sentences, normal respiratory pattern, no audible wheezes and no cough Cardio Jugular venous distension: no JVD GI Inspection: Yes normal to inspection Neuro General: patient oriented x3 and gait normal Cranial nerves: Yes CN's II-XII intact bilaterally, Yes Equal, round and reactive pupils present, Yes Normal hearing present and Yes Ability to bilaterally elevate shoulders present Speech: No Abnormal speech present Gait exam (Neuro): Normal gait present Motor exam (neuro): 5/5 motor strength present throughout Sensory Exam: No Sensory deficit (Neuro) Extrem General: No pedal edema Psych Speech and movement: Normal speech and movement present Affect: normal affect Attitude: cooperative Thought process: Normal thought process present Thought content: Normal thought content present Insight: Good insight present (Psych) Judgement: Good judgement present (Psych) Results Reviewed Results Reviewed: : 12/15/23 Procedure(s): XR shoulder LT min 2V CLINICAL INFORMATION: Primary osteoarthritis left shoulder COMPARISON: None available. TECHNIQUE: AP external rotation, Grashey, scapular Y, and axillary views of the left shoulder. FINDINGS: Mild degenerative changes in the acromioclavicular and glenohumeral joints. Acromioclavicular and glenohumeral alignment is preserved. No abnormal soft tissue calcifications identified adjacent to the humeral head to suggest rotator cuff pathology. Assessment & Plan Assessment & Plan (1) Arthritis of shoulder region, left: Code(s): M19.012 - Primary osteoarthritis, left shoulder Category: Medical (2) Right shoulder pain: Code(s): M25.511 - Pain in right shoulder Category: Medical (3) Acromioclavicular joint arthritis: Code(s): M19.019 - Primary osteoarthritis, unspecified shoulder Category: Medical (4) Arthritis of glenohumeral joint: Code(s): M19.019 - Primary osteoarthritis, unspecified shoulder Category: Medical (5) Left shoulder pain: Code(s): M25.512 - Pain in left shoulder Category: Medical (6) Left anterior shoulder pain: Code(s): M25.512 - Pain in left shoulder Category: Medical Plan This patient on the MRI has severe right-sided neural foraminal narrowing. However she complains on pain on the left chest in the projection in the left pectoralis major muscle. Were performed diagnostic and therapeutic AC and GH injections on the left. Unfortunately no relief of the pain. I offered her today diagnostic interscalene nerve block on the left. If this will work we can discuss peripheral nerve stimulation in the interscalene positioned. We will see this patient after the injection in the office. Coding Level of Care Code Est Pt Level 3 (95725) Diagnoses Arthritis of shoulder region, left M19.012 Right shoulder pain M25.511 Acromioclavicular joint arthritis M19.019 Arthritis of glenohumeral joint M19.019 Left shoulder pain M25.512 Left anterior shoulder pain M25.512
[2024-05-16 14:14] VITALS: BP 160/84; PULSE 50; RESP 16; O2SAT 98; BMI 29.4
== END 2024-05-16 14:54 | disposition home or self-care (01) ==
PROVIDERS: PCP Physician Assistant; Visit Provider Anesthesiology
DX: M19.012 Primary osteoarthritis, left shoulder (principal); M25.511 Pain in right shoulder; M19.019 Primary osteoarthritis, unspecified shoulder; M25.512 Pain in left shoulder
CPT/HCPCS: 99213

== ENCOUNTER → 2024-05-16 14:05 | Outpatient (BNVA) | payer OTHER, MEDICAID, SELFPAY | PROVIDERS: PCP Physician Assistant; Visit Provider Anesthesiology | DX: M19.012 Primary osteoarthritis, left shoulder (principal); M25.511 Pain in right shoulder; M19.019 Primary osteoarthritis, unspecified shoulder; M25.512 Pain in left shoulder | CPT/HCPCS: 99212 ==

== ENCOUNTER 2024-08-16 06:21 | Outpatient (REF) | payer OTHER, SELFPAY | END 2024-08-16 06:22 | disposition home or self-care (01) | LOC: CF 06:21 | PROVIDERS: Visit Provider Anesthesiology | DX: M25.512 Pain in left shoulder (principal); M19.012 Primary osteoarthritis, left shoulder; M25.511 Pain in right shoulder | CPT/HCPCS: 64415; J2003; J2795 ==

== ENCOUNTER 2024-08-16 13:40 | Outpatient (AMB) | payer OTHER, SELFPAY ==
[2024-08-16 13:44] VITALS: BP 178/80; PULSE 53; RESP 16; O2SAT 100
--- NOTE | 2024-08-16 13:44 | A.OFFVIS_ITS ---
Vital Signs 08/16/24 13:44 08/16/24 14:25 BP 178/80 H 144/73 H Blood Pressure Location Lt brachial Lt brachial Position Sitting Sitting Respiration 16 16 Pulse 53 80 Pulse Source Pulse Oximeter Pulse Oximeter Pulse Oximetry (%) 100 100 Oxygen Delivery Method Room Air Room Air Intake Visit Reasons: LEFT DIAGNOSTIC INTERSCALENE NERVE BLOCK Allergies penicillin G Allergy (Verified 08/16/24 13:46) Unknown Medication List - Last Reconciled 08/16/24 by Swetha Reynolds LPN celecoxib (Celebrex) 200 mg PO BID duloxetine 30 mg PO DAILY levothyroxine 1 tab PO DAILY lorazepam 0.5 mg PO BEDTIME PRN mirtazapine 7.5 mg PO DAILY naloxone 4 mg/actuation (Narcan) 4 mg intranasal Q2M PRN pregabalin 150 mg PO BID 30 days PFSH Medical History Anxiety Back pain Depression Hypothyroidism Other intervertebral disc degeneration, lumbar region Right ankle sprain Smoker Spondylosis without myelopathy or radiculopathy, lumbar region Surgical History H/O tubal ligation H/O: hysterectomy History of laparoscopic cholecystectomy Social History Comment: BRACE Patient Tobacco Use Status: Current everyday Tobacco user Tobacco use type: Cigarette Cigarettes Per Day: 12 Physical Exam Vital Signs: Last Vital Signs Pulse 80 08/16/24 14:25 Resp 16 08/16/24 14:25 BP 144/73 H 08/16/24 14:25 Pulse Ox 100 08/16/24 14:25 Oxygen Delivery Method Room Air 08/16/24 14:25 Assessment & Plan Assessment & Plan (1) Arthritis of shoulder region, left: Code(s): M19.012 - Primary osteoarthritis, left shoulder Category: Medical (2) Right shoulder pain: Code(s): M25.511 - Pain in right shoulder Category: Medical (3) Acromioclavicular joint arthritis: Code(s): M19.019 - Primary osteoarthritis, unspecified shoulder Category: Medical (4) Arthritis of glenohumeral joint: Code(s): M19.019 - Primary osteoarthritis, unspecified shoulder Category: Medical (5) Left shoulder pain: Code(s): M25.512 - Pain in left shoulder Category: Medical (6) Left anterior shoulder pain: Code(s): M25.512 - Pain in left shoulder Category: Medical Plan Left interscalene diagnostic brachial plexus block. Informed consent was carefully explained to the patient including risks of bleeding infection and peripheral nerve damage using estate tax examiner from voice. After that patient was taken to the examination bed and positioned sup ine with upper back and the head slightly elevated. Time-out was performed delineating name and date of of the patient side and site of the procedure, risks and benefits. The left side of the neck and left shoulder were prepped with ChloraPrep and draped with sterile self adhesive utility towels. Sterilely draped flat ultrasound probe was brought onto anterior lateral surface of the neck and ultrasound picture of the brachial plexus, anterior and medium interscalene muscles as well as carotid artery and jugular vein were demonstrated on the screen. 100 mm needle echo stim was inserted through the skin extra anatomically and advanced to the gap between the superior branch of the and medial branch of the brachial plexus. When tip of the needle was in desired positioned injection of the normal saline was performed demonstrating spread of the normal saline in the appropriate fashion as expanding surrounding tissues. After that 7 cc of ropivacaine 0.5% was injected into the needle. Frequent aspirations were performed. No blood was detected. The patient tolerated the procedure well. She was taken outside of the operating room to recovery room where she recovered uneventfully. Orders: Orders US guide needle placement 08/16/24 M25.512 - Pain in left shoulder Coding Level of Care Code Procedure Only Diagnoses Arthritis of shoulder region, left M19.012 Right shoulder pain M25.511 Acromioclavicular joint arthritis M19.019 Arthritis of glenohumeral joint M19.019 Left shoulder pain M25.512 Left anterior shoulder pain M25.512
[2024-08-16 14:25] VITALS: BP 144/73; PULSE 80; RESP 16; O2SAT 100
== END 2024-08-16 14:24 | disposition home or self-care (01) ==
LOC: HO.PMCPRC 13:40
PROVIDERS: PCP Physician Assistant; Visit Provider Anesthesiology
DX: M19.012 Primary osteoarthritis, left shoulder (principal); M25.511 Pain in right shoulder; M19.019 Primary osteoarthritis, unspecified shoulder; M25.512 Pain in left shoulder
CPT/HCPCS: 64415; 76942

== ENCOUNTER 2024-08-22 11:02 | Outpatient (AMB) | payer OTHER, MEDICAID, SELFPAY ==
--- NOTE | 2024-08-22 11:06 | A.OFFVIS_ITS ---
Vital Signs 08/22/24 11:08 Height 5 ft 2 in Weight 152 lb BMI 27.8 BP 143/66 H Blood Pressure Location Lt brachial Position Sitting Respiration 16 Pulse 69 Pulse Source Pulse Oximeter Pulse Oximetry (%) 99 Oxygen Delivery Method Room Air Intake Visit Reasons: LEFT DIAGNOSTIC INTERSCALENE NERVE BLOCK Allergies penicillin G Allergy (Verified 08/22/24 11:08) Unknown Medication List - Last Reconciled 08/22/24 by Swetha Reynolds LPN celecoxib (Celebrex) 200 mg PO BID duloxetine 30 mg PO DAILY levothyroxine 1 tab PO DAILY lorazepam 0.5 mg PO BEDTIME PRN mirtazapine 7.5 mg PO DAILY naloxone 4 mg/actuation (Narcan) 4 mg intranasal Q2M PRN pregabalin 150 mg PO BID 30 days HPI Comments Details: Ms. Chandler is in my office after diagnostic interscalene nerve block. She reported appropriate numbness and weakness in the left upper extremity, however she reports pain in his shoulder and anterior chest continue to bother her after the injection. Today she presents with her son in my office and they told me that [facility] performed MRI of her chest in the found some possible pain generators in her chest. I requested her to sign medical information release note and have this MRI available for me. She was also under care of [facility]. They recommended conservative treatment initially. I recommended them to address this pain into [facility]'s office with continuous complain on the left shoulder pain. She reports pain in the left shoulder and pain in the left lateral chest. She received diagnostic and therapeutic acromioclavicular nerve injection as well as intra-articular glenohumeral joint injection on the left and she reported no improvement with this injections. Prior : very pleasant 53 years old female who presents in my office today with her son. Her son is fluent in [place] and Filipino and he was able to help us to interpret the conversation. The patient complains on pain in the left side of the chest. The patient reports that she visited emergency room few times to get help with this pain. She previously was complaining on cervicalgia so she was sent for MRI of the cervical spine and results of the MRI are dictated as below. However with careful questioning today she admitted that her pain in the neck is not related to the pain in the left chest, she reported when her pain in the chest is stronger her pain in the neck might be non-existent and vice versa. She in the emergency room was ruled out with cardiac pathology. She went for [facility] and had x-ray of the left shoulder there. She told me that she will bring this x-ray results to me as well as the disc of the x-ray images. I will schedule appointment with her in 1 week. She also requests to increase the dose of Lyrica since it helps her widespread pain due to fibromyalgia. I will make it 100 mg b.i.d.. [facility] Medical History Anxiety Back pain Depression Hypothyroidism Other intervertebral disc degeneration, lumbar region Right ankle sprain Smoker Spondylosis without myelopathy or radiculopathy, lumbar region Surgical History H/O tubal ligation H/O: hysterectomy History of laparoscopic cholecystectomy Social History Comment: BRACE Patient Tobacco Use Status: Current everyday Tobacco user Tobacco use type: Cigarette Cigarettes Per Day: 12 Review of Systems Const All systems reviewed & are unremarkable except as noted in HPI and below ENT Reports Normal hearing present Neuro Reports Normal hearing present, Denies Abnormal speech present and Denies Sensory deficit (Neuro) Physical Exam Vital Signs: Last Vital Signs Pulse 69 08/22/24 11:08 Resp 16 08/22/24 11:08 BP 143/66 H 08/22/24 11:08 Pulse Ox 99 08/22/24 11:08 Oxygen Delivery Method Room Air 08/22/24 11:08 BMI result Body Mass Index 27.8 Const General: no acute distress Orientation/consciousness: patient oriented x3 Eyes General: appearance normal, both eyes and all related structures Pupils: Equal, round and reactive pupils present EOM: EOMs intact bilaterally Neck Neck: Yes full ROM Chest Other: She complains on the pain in the left side of the chest. Palpation of the left shoulder joint in the projection of deltoid muscle is very painful. The range of motion of the left shoulder is significantly limited. Resp Effort & Inspection: normal respiratory effort, able to speak in complete sentences, normal respiratory pattern, no audible wheezes and no cough Cardio Jugular venous distension: no JVD GI Inspection: Yes normal to inspection Neuro General: patient oriented x3 and gait normal Cranial nerves: Yes CN's II-XII intact bilaterally, Yes Equal, round and reactive pupils present, Yes Normal hearing present and Yes Ability to bilaterally elevate shoulders present Speech: No Abnormal speech present Gait exam (Neuro): Normal gait present Motor exam (neuro): 5/5 motor strength present throughout Sensory Exam: No Sensory deficit (Neuro) Extrem General: No pedal edema Psych Speech and movement: Normal speech and movement present Affect: normal affect Attitude: cooperative Thought process: Normal thought process present Thought content: Normal thought content present Insight: Good insight present (Psych) Judgement: Good judgement present (Psych) Results Reviewed Results Reviewed: : 12/15/23 Procedure(s): XR shoulder LT min 2V CLINICAL INFORMATION: Primary osteoarthritis left shoulder COMPARISON: None available. TECHNIQUE: AP external rotation, Grashey, scapular Y, and axillary views of the left shoulder. FINDINGS: Mild degenerative changes in the acromioclavicular and glenohumeral joints. Acromioclavicular and glenohumeral alignment is preserved. No abnormal soft tissue calcifications identified adjacent to the humeral head to suggest rotator cuff pathology. Assessment & Plan Assessment & Plan (1) Arthritis of shoulder region, left: Code(s): M19.012 - Primary osteoarthritis, left shoulder Category: Medical (2) Right shoulder pain: Code(s): M25.511 - Pain in right shoulder Category: Medical (3) Acromioclavicular joint arthritis: Code(s): M19.019 - Primary osteoarthritis, unspecified shoulder Category: Medical (4) Arthritis of glenohumeral joint: Code(s): M19.019 - Primary osteoarthritis, unspecified shoulder Category: Medical (5) Left shoulder pain: Code(s): M25.512 - Pain in left shoulder Category: Medical (6) Left anterior shoulder pain: Code(s): M25.512 - Pain in left shoulder Category: Medical Plan This patient on the MRI has severe right-sided neural foraminal narrowing. However she complains on pain on the left chest in the projection in the left pectoralis major muscle. Were performed diagnostic and therapeutic AC and GH injections on the left. Unfortunately no relief of the pain. Diagnostic left interscalene block also resulted in no pain improvement. It is very hard to determine pain generators of this patient. Apparently there is an MRI of her chest which demonstrated some changes which could be source of her pain. This MRI is not available for me. I will have them to sign medical information release note and we will obtain this MRI my review. I also recommended her to go to [facility] office where she was offered initially physical therapy and conservative treatment. I recommended them to address the issue of this chest pain and shoulder pain exacerbated by elevation of the arm above the shoulder line to that office of [facility]. If they will not offer her any treatment she is recommended to come back and we will start to discuss neuromodulation for her pain. Diagnose pectoralis plain ultrasound-guided injection could be done to at least diagnose this condition. Patient Instructions: The patient presented today in my office with her son who was helping with interpretation. I here by testify that I spent 35 minutes in conversation with this patient as well as planning her care and organizing this note. Coding Level of Care Code Est Pt Level 4 (91872) Diagnoses Arthritis of shoulder region, left M19.012 Right shoulder pain M25.511 Acromioclavicular joint arthritis M19.019 Arthritis of glenohumeral joint M19.019 Left shoulder pain M25.512 Left anterior shoulder pain M25.512
[2024-08-22 11:08] VITALS: BP 143/66; PULSE 69; RESP 16; O2SAT 99; BMI 27.8
--- OUTSIDE RECORDS SUMMARY | 2024-08-22 16:01 | XMS_ITS | Clinical Summary ---
Author Organization [facility] ity Address [address] [place] [address] Care Team Providers Care Kosher Dietary Service Manager Name Role Phone Mar Gray Primary Care Provider [phone] Social History Tobacco Use Types Packs/Day Years Used Date Smoking Tobacco: Never Assessed Sex and Gender Information Value Date Recorded Sex Assigned at Not on file Gender Identity Not on file Sexual Orientation Not on file Plan of Treatment Health Maintenance Due Date Last Done Comments DTaP,Tdap,and Td Vaccines (1 - Tdap) 11/26/1987 Hepatitis B Vaccines (1 of 3 - 19+ 3-dose series) 11/26/1987 Cervical Cancer Screening: P ap Smear 1989 Zoster Vaccines (1 of 2) 2018 Breast Cancer Screening 11/27/2019 11/26/2017 Colorectal Cancer Screening: Colonoscopy 06/29/2022 Depression Screening 06/29/2022 HIV Screening 06/29/2022 Hepatitis C Screening 06/29/2022 Social Influencers of Health Screening 06/29/2022 COVID-19 Vaccine ( - 2023-2 5 season) 2024 Influenza Vaccine (#1) 2024 HIB Vaccines Aged Out No longer eligi ble based on patient's age to complete this topic HPV Vaccines Aged Out No longer eligi ble based on patient's age to complete this topic Hepatitis A Vaccines Aged Out No long er eligible based on patient's age to complete this topic IPV Vaccines Aged Out No longer eligi ble based on patient's age to complete this topic MMR Vaccines Aged Out No longer eligi ble based on patient's age to complete this topic Meningococcal ACWY Vaccine Aged Out N o longer eligible based on patient's age to complete this topic Pneumococcal Vaccine: Pediat rics (0 to 5 Years) and At-Risk Patients (6 to 64 Years) Aged Out No longer eligi ble based on patient's age to complete this topic RSV Immunization Patients Un martha 20 months Aged Out No longer eligible b ased on patient's age to complete this topic Varicella Vaccines Aged Out No longer eligible based on patient's age to complete this topic Procedures Procedure Name Priority Date/Time Associated Diagnosis Comments [facility] SCREENING DIGITAL Routine 11/26/2017 5:48 PM EDT Encounter for screening mammogram for malignant neoplasm of breast from Last 3 Months or Most Recently Relevant to Health Maintenance Results * [facility] SCREENING DIGITAL (11/26/2017 5:48 PM EDT) Anatomical Region Laterality Modality Mammography 11/26/2017 12:5 5 PM EDT Narrative 11/26/2017 5:48 PM EDT [facility] Diagnostic Imaging Department [address] [place] [address] Patient: ??SAMMY CHANDLER ?/Age/Sex: 1970 - 47 - F Unit#: ??[id number] ? Location/Status: ??SPDIMAM/REG CLI ? Mnemonic/Ordering Site: ??DIGSC/SPMAM Ordering Physician: ??MAR GRAY [facility] Screening Digital - 11/26/17 - 1320 History: Breast cancer screening. Technique: ?? Bilateral digital mammography. Conventional CC and MLO projections with tomosynthesis MLO views and computer aided detection. Comparison: [facility] 09/29/2016 through 04/05/2009. Findings: ?? Breast tissue consists of fatty and fibroglandular tissue, category b density. Oval 5-6 mm asymmetries just lateral to the nipple line mid to anterior right breast CC projection and above the nipple line mid to anterior breast MLO projection is confirmed on tomography. Additional more questionable asymmetry within the mid to posterior lateral right breast CC projection. No architectural distortion or suspicious group of microcalcification within either breast. No concerning left breast asymmetry. Impression: Right breast asymmetries, incompletely assessed. Recommend diagnostic mammography to include spot compression view right MLO projection and CC projection tomography to be followed by ultrasound. Patient will be contacted directly to arrange for supplementary imaging. BIRADS Category 0: Incomplete. Needs further imaging evaluation, [id number], [id number] Patient information entered into a reminder system with a target date for the next mammogram. PQRI [id number] Dictating Physician: ??LEOPOLDO TIJERINA MD Electronically Signed by: ??LEOPOLDO TIJERINA MD Dic Date/Time: ??11/26/171744 Sign date/Time: ??11/26/171747 Procedure Note Leopoldo Tijerina MD - 07/15/2022 [facility] Diagnostic Imaging Department [address] [place] [address] Patient: SAMMY CHANDLER D.O.B./Age/Sex: 1970 - 47 - F Unit#: [id number] Location/Status: SPDIMAM/REG CLI Mnemonic/Ordering Site: [facility] Ordering Physician: MAR GRAY [facility] Screening Digital - 11/26/17 - 1320 History: Breast cancer screening. Technique: Bilateral digital mammography. Conventional CC and MLOprojections with tomosynthesis MLO views and computer aided detection. Comparison: [facility] 09/29/2016 through 04/05/2009. Findings: Breast tissue consists of fatty and fibroglandular tissue,category b density. Oval 5-6 mm asymmetries just lateral to the nipple line mid to anteriorright breast CC projection and above the nipple line mid to anterior breastMLO projection is confirmed on tomography. Additional more questionableasymmetry within the mid to posterior lateral right breast CC projection. No architectural distortion or suspicious group of microcalcificationwithin either breast. No concerning left breast asymmetry. Impression: Right breast asymmetries, incompletely assessed. Recommend diagnostic mammography to include spot compression view right MLOprojection and CC projection tomography to be followed by ultrasound. Patient will be contacted directly to arrange for supplementary imaging. BIRADS Category 0: Incomplete. Needs further imaging evaluation, [id number], [id number] Patient information entered into a reminder system with a target date forthe next mammogram. PQRI [id number] Dictating Physician: LEOPOLDO TIJERINA MD Electronically Signed by: LEOPOLDO TIJERINA MD Dic Date/Time: 11/26/171744 Sign date/Time: 11/26/171747 Mar CABRALES IMG BI PROCEDURES from Last 3 Months or Most Recently Relevant to Health Maintenance Advance Directives Documents on File Type Date Recorded Patient Regional Business Manager Expl anation Health Care Decision (hx) 10/28/2017 AD SILVA DIRECTIVE Health Care Decision (hx) 10/28/2017 AD SILVA DIRECTIVE Health Care Decision (hx) 10/28/2017 AD SILVA DIRECTIVE Care Teams Kosher Dietary Service Manager Relationship Specialty Start Date End Date Mar Gray PA [address] [place] [address] PCP - General Internal Medicine 03/19/21
== END 2024-08-22 11:27 | disposition home or self-care (01) ==
PROVIDERS: PCP Physician Assistant; Visit Provider Anesthesiology
DX: M19.012 Primary osteoarthritis, left shoulder (principal); M25.511 Pain in right shoulder; M19.019 Primary osteoarthritis, unspecified shoulder; M25.512 Pain in left shoulder
CPT/HCPCS: 99214

== ENCOUNTER → 2024-08-22 11:02 | Outpatient (BNVA) | payer OTHER, MEDICAID, SELFPAY | PROVIDERS: PCP Physician Assistant; Visit Provider Anesthesiology | DX: M19.012 Primary osteoarthritis, left shoulder (principal); M25.511 Pain in right shoulder | CPT/HCPCS: 99212 ==

== ENCOUNTER 2024-11-07 14:35 | Outpatient (AMB) | payer OTHER, MEDICAID, SELFPAY ==
--- NOTE | 2024-11-07 14:43 | MHC.OFFVIS ---
Vital Signs 11/07/24 14:45 Height 5 ft 2 in Weight 158 lb BMI 28.9 BP 147/73 H Blood Pressure Location Lt brachial Position Sitting Respiration 16 Pulse 74 Pulse Source Pulse Oximeter Pulse Oximetry (%) 100 Oxygen Delivery Method Room Air Intake Visit Reasons: FU neck pain/ref again Residential Direct Support Professional Required: Yes Residential Direct Support Professional Services: Residential Direct Support Professional Offered & Declined Residential Direct Support Professional Name: Prefers son to translate Allergies penicillin G Allergy (Verified 11/07/24 14:46) Unknown Medication List - Last Reconciled 11/07/24 by Swetha Reynolds LPN bupropion HCl XL 150 mg PO DAILY celecoxib (Celebrex) 200 mg PO BID duloxetine 30 mg PO DAILY levothyroxine 1 tab PO DAILY lorazepam 0.5 mg PO BEDTIME PRN mirtazapine 7.5 mg PO DAILY naloxone 4 mg/actuation (Narcan) 4 mg intranasal Q2M PRN pregabalin 150 mg PO BID 30 days quetiapine 200 mg PO BEDTIME rosuvastatin 10 mg PO BEDTIME HPI Comments Details: Ms. Chandler is back in my office discuss treatment of her obscure pain syndrome. My efforts to find the source of the pain were not very effective for this patient unfortunately. Last time I performed interscalene nerve block with no results. Today I offered her spinal cord stimulator Nevro, I gave her brochure to read. I also gave her [employer] brochure to go for psychological evaluation. She has an appointment with orthopedic surgery in November, they will decide whether or not they can help her pain with surgery. I recommended the patient that if surgery will not be offered to her or she would not accept the surgical intervention she needs to come back and we again discuss SCS Nevro and psychological evaluation. She was also under care of [facility]. They recommended conservative treatment initially. I recommended them to address this pain into [facility]'s office with continuous complain on the left shoulder pain. She reports pain in the left shoulder and pain in the left lateral chest. She received diagnostic and therapeutic acromioclavicular nerve injection as well as intra-articular glenohumeral joint injection on the left and she reported no improvement with this injections. Prior : very pleasant 53 years old female who presents in my office today with her son. Her son is fluent in [place] Islander and Filipino and he was able to help us to interpret the conversation. The patient complains on pain in the left side of the chest. The patient reports that she visited emergency room few times to get help with this pain. She previously was complaining on cervicalgia so she was sent for MRI of the cervical spine and results of the MRI are dictated as below. However with careful questioning today she admitted that her pain in the neck is not related to the pain in the left chest, she reported when her pain in the chest is stronger her pain in the neck might be non-existent and vice versa. She in the emergency room was ruled out with cardiac pathology. She went for [facility] and had x-ray of the left shoulder there. She told me that she will bring this x-ray results to me as well as the disc of the x-ray images. I will schedule appointment with her in 1 week. She also requests to increase the dose of Lyrica since it helps her widespread pain due to fibromyalgia. I will make it 100 mg b.i.d.. [facility] Medical History Anxiety Back pain Depression Hypothyroidism Other intervertebral disc degeneration, lumbar region Right ankle sprain Smoker Spondylosis without myelopathy or radiculopathy, lumbar region Surgical History H/O tubal ligation H/O: hysterectomy History of laparoscopic cholecystectomy Social History Comment: BRACE Patient Tobacco Use Status: Current everyday Tobacco user Tobacco use type: Cigarette Cigarettes Per Day: 12 Review of Systems Const All systems reviewed & are unremarkable except as noted in HPI and below ENT Reports Normal hearing present Neuro Reports Normal hearing present, Denies Abnormal speech present and Denies Sensory deficit (Neuro) Physical Exam Vital Signs: Last Vital Signs Pulse 74 11/07/24 14:45 Resp 16 11/07/24 14:45 BP 147/73 H 11/07/24 14:45 Pulse Ox 100 11/07/24 14:45 Oxygen Delivery Method Room Air 11/07/24 14:45 BMI result Body Mass Index 28.9 Const General: no acute distress Orientation/consciousness: patient oriented x3 Eyes General: appearance normal, both eyes and all related structures Pupils: Equal, round and reactive pupils present EOM: EOMs intact bilaterally Neck Neck: Yes full ROM Chest Other: She complains on the pain in the left side of the chest. Palpation of the left shoulder joint in the projection of deltoid muscle is very painful. The range of motion of the left shoulder is significantly limited. Resp Effort & Inspection: normal respiratory effort, able to speak in complete sentences, normal respiratory pattern, no audible wheezes and no cough Cardio Jugular venous distension: no JVD GI Inspection: Yes normal to inspection Neuro General: patient oriented x3 and gait normal Cranial nerves: Yes CN's II-XII intact bilaterally, Yes Equal, round and reactive pupils present, Yes Normal hearing present and Yes Ability to bilaterally elevate shoulders present Speech: No Abnormal speech present Gait exam (Neuro): Normal gait present Motor exam (neuro): 5/5 motor strength present throughout Sensory Exam: No Sensory deficit (Neuro) Extrem General: No pedal edema Psych Speech and movement: Normal speech and movement present Affect: normal affect Attitude: cooperative Thought process: Normal thought process present Thought content: Normal thought content present Insight: Good insight present (Psych) Judgement: Good judgement present (Psych) Assessment & Plan Assessment & Plan (1) Arthritis of shoulder region, left: Code(s): M19.012 - Primary osteoarthritis, left shoulder Category: Medical (2) Right shoulder pain: Code(s): M25.511 - Pain in right shoulder Category: Medical (3) Acromioclavicular joint arthritis: Code(s): M19.019 - Primary osteoarthritis, unspecified shoulder Category: Medical (4) Arthritis of glenohumeral joint: Code(s): M19.019 - Primary osteoarthritis, unspecified shoulder Category: Medical (5) Left shoulder pain: Code(s): M25.512 - Pain in left shoulder Category: Medical (6) Left anterior shoulder pain: Code(s): M25.512 - Pain in left shoulder Category: Medical (7) Chronic pain syndrome: Code(s): G89.4 - Chronic pain syndrome Category: Medical Plan This patient on the MRI has severe right-sided neural foraminal narrowing. However she complains on pain on the left chest in the projection in the left pectoralis major muscle. Were performed diagnostic and therapeutic AC and GH injections on the left. Unfortunately no relief of the pain. Diagnostic left interscalene block also resulted in no pain improvement. It is very hard to determine pain generators of this patient. Apparently there is an MRI of her chest which demonstrated some changes which could be source of her pain. This MRI is not available for me. However for the follow-up she is going to discuss this MRI and potential surgical interventions with [facility]. I meanwhile I offered her today Nevro SCS in cervical positioned. I gave her brochure about Nevro SCS and encouraged her to give them a call to discuss Nevro SCS in Filipino. I also gave her brochure of [employer] and explained to her that she would need to go for psychological evaluation if she would like to have Nevro trial. She will give us a call and schedule appointment with me if she decides to go for Nevro SCS. Coding Level of Care Code Est Pt Level 3 (28752) Diagnoses Arthritis of shoulder region, left M19.012 Right shoulder pain M25.511 Acromioclavicular joint arthritis M19.019 Arthritis of glenohumeral joint M19.019 Left shoulder pain M25.512 Left anterior shoulder pain M25.512 Chronic pain syndrome G89.4
[2024-11-07 14:45] VITALS: BP 147/73; PULSE 74; RESP 16; O2SAT 100; BMI 28.9
--- OUTSIDE RECORDS SUMMARY | 2024-11-07 17:00 | XMS_ITS | Clinical Summary ---
Author Organization [facility] ity Address [address] [place] [address] Care Team Providers Care Neck Pinner Name Role Phone Mar Gray Primary Care Provider [phone] Social History Tobacco Use Types Packs/Day Years Used Date Smoking Tobacco: Never Assessed Comments Unknown Sex and Gender Information Value Date Recorded Sex Assigned at Not on file Legal Sex Female 10:48 PM EST Gender Identity Not on file Sexual Orientation Not on file Plan of Treatment Health Maintenance Due Date Last Done Comments DTaP,Tdap,and Td Vaccines (1 - Tdap) 11/26/1987 Hepatitis B Vaccines (1 of 3 - 19+ 3-dose series) 11/26/1987 Cervical Cancer Screening: P ap Smear 1989 Pneumococcal Vaccine: 50+ Ye ars (1 of 1 - PCV) 2018 Zoster Vaccines (1 of 2) 2018 Breast Cancer Screening 11/27/2019 11/26/2017 Colorectal Cancer Screening: Colonoscopy 06/29/2022 Depression Screening 06/29/2022 HIV Screening 06/29/2022 Hepatitis C Screening 06/29/2022 Social Influencers of Health Screening 06/29/2022 COVID-19 Vaccine ( - 2023-2 5 season) 2024 Influenza Vaccine (Season Ended) 2025 HIB Vaccines Aged Out No longer eligi [...] patient's age to complete this topic Meningococcal B Vaccine Aged Out No l onger eligible based on patient's age to complete [...] Procedure Name Priority Date/Time Associated Diagnosis Comments [facility] SCREENING DIGITAL Routine 11/26/2017 5:48 PM EDT Encounter for screening mammogram for malignant neoplasm of breast from Last 3 Months or Most Recently Relevant to Health Maintenance Results * SHAGGY SCREENING DIGITAL (11/26/2017 5:48 PM EDT) Anatomical Region Laterality Modality Mammography 11/26/2017 12:5 5 PM EDT Narrative 11/26/2017 5:48 PM EDT [facility] Diagnostic Imaging Department [address] [place] [address] Patient: ??SAMMY CHANDLER ?/Age/Sex: 1970 - 47 - F Unit#: ??[id number] ? Location/Status: ??SPDIMAM/REG CLI ? Mnemonic/Ordering Site: ??DIGSC/SPMAM Ordering Physician: ??MAR GRAY Shaggy Screening Digital - 11/26/17 - 1320 History: Breast cancer screening. Technique: ?? Bilateral digital mammography. Conventional CC and MLO projections with tomosynthesis MLO views and computer aided detection. Comparison: [facility] 09/29/2016 through 04/05/2009. Findings: ?? Breast tissue [...] 0: Incomplete. Needs further imaging evaluation, [id number], [id number] Patient information entered into a reminder system with a target date [place] the next [place]ogram. [id number] Dictating Physician: ??LEOPOLDO TIJERINA MD Electronically Signed by: ??LEOPOLDO TIJERINA MD Dic Date/Time: ??11/26/171744 Sign date/Time: ??11/26/171747 Procedure Note Leopoldo Tijerina MD - 07/15/2022 [facility] Diagnostic Imaging Department [address] [place], [place] [id number] Patient: SAMMY CHANDLER D.O.B./Age/Sex: 1970 - 47 - F Unit#: [id number] Location/Status: SPDIMAM/REG CLI Mnemonic/Ordering Site: [facility] Ordering Physician: MAR GRAY Shaggy Screening Digital - 11/26/17 - 1320 History: Breast cancer screening. Technique: Bilateral digital mammography. Conventional CC and MLOprojections with tomosynthesis MLO views and computer aided detection. Comparison: [facility] 09/29/2016 through 04/05/2009. Findings: Breast tissue consists [...] 0: Incomplete. Needs further imaging evaluation, [id number], 11133 Patient information entered into a reminder system with a target date forthe next mammogram. [id number] Dictating Physician: LEOPOLDO TIJERINA MD Electronically Signed by: LEOPOLDO TIJERINA MD Dic Date/Time: 11/26/171744 Sign date/Time: 11/26/171747 Mar CABRALES IMG BI PROCEDURES Final Result from Last 3 Months or Most Recently Relevant to Health Maintenance Advance Directives Documents on File Type Date Recorded Patient Desulfurizer Hand Expl anation Health Care Decision (hx) 10/28/2017 AD SILVA DIRECTIVE Health Care Decision (hx) 10/28/2017 AD SILVA DIRECTIVE Health Care Decision (hx) 10/28/2017 AD SILVA DIRECTIVE Care Teams Neck Pinner Relationship Specialty Start Date End Date Mar Gray PA [address] [place] [address] PCP - General Internal Medicine 03/19/21
--- OUTSIDE RECORDS SUMMARY | 2024-11-07 17:00 | XMS_ITS | Clinical Summary ---
Author Organization [facility] Address [address] [place] [address] Care Team Providers Care Sterilization Specialist Name Role Phone Megan Law PA-C Primary Care Provider + [phone] Source Comments PLEASE NOTE, if this patient is a minor, it may be UNLAWFUL to discuss sensitive information that is contained in these records (such as FAMILY PLANNING, MENTAL HEALTH or SUBSTANCE ABUSE) with the minor patient's parent or other person without the patient's specific authorization.[facility] Allergies Active Allergy Reactions Criticality Noted Date Comments Penicillins Swelling 05/11/2013 Medications loratadine (CLARITIN) 10 mg tabletIndications: Seasonal allergies Take 1 Tablet by mouth nightly at bedtime as needed for allergies 90 Tablet 1 08/28/19 21 Active QUEtiapine (SEROQUEL) 50 mg tabletIndications: Primary insomnia Take 50 mg by mouth nightly at bedtime 03/05/20 21 Active mirtazapine 7.5 mg tab TAKE 1 TABLET BY MOUTH AT BEDTIME WATCH FOR OVEREATING AND WEIGHT GAIN 12/03/19 22 Active DULoxetine (CYMBALTA) [address] capsuleIndications :Lumbar disc disease TAKE 1 CAPSULE BY MOUTH ONCE A DAY TAKE WITH 30MG CYMBALTA DOSE TOTAL 90 MG 03/13/20 22 Active DULoxetine (CYMBALTA) [address] capsuleIndications :Primary osteoarthritis involving multiple joints TAKE 1 CAPSULE BY MOUTH ONCE A DAY TAKE WITH 60 MG CAPSULE TOTAL 90MG DAILY 08/10/19 23 Active buPROPion SR (WELLBUTRIN SR) 100 mg 12 hr tabletIndications: Anxiety and depression Take 100 mg by mouth 2 (two) times daily 03/25/20 23 Active LORazepam (ATIVAN) 0.5 mg tabletIndications: Anxiety and depression TAKE 1 TABLET BY MOUTH TWICE A DAY NEEDED 01/20/20 23 Active pregabalin (LYRICA) 75 mg capsuleIndications :Primary osteoarthritis involving multiple joints Take 75 mg by mouth 2 (two) times daily Active MISCELLANEOUS MEDICAL SUPPLY MISCIndications:El evated blood pressure, situational by miscellaneous route daily. [facility] automatic blood pressure monitor, disp1,lifetime need, dx labile blood pressure 1 Each 08/11/19 24 Active nicotine, polacrilex, (NICORETTE) 4 mg gumIndications:Tob acco use Take 1 Each by mouth every 4 (four) hours as needed for smoking cessation 110 Each 1 08/12/19 24 Active VITAMIN D3 50 mcg (2,000 unit) tabletIndications: Lumbar disc disease TAKE 1 TABLET BY MOUTH EVERY DAY 90 Tablet 2 10/06/19 24 Active rosuvastatin (CRESTOR) 10 mg tabletIndications: Mixed hyperlipidemia TAKE 1 TABLET BY MOUTH EVERYDAY AT BEDTIME 90 Tablet 5 04/05/20 24 Active celecoxib (CELEBREX) 200 mg capsuleIndications :Primary osteoarthritis involving multiple joints TAKE 1 CAPSULE BY MOUTH TWICE A DAY 180 Capsule 1 05/12/20 24 Active acetaminophen (TYLENOL) 500 mg tabletIndications: Primary osteoarthritis involving multiple joints Take 2 Tablets by mouth 3 (three) times daily 540 Tablet 2 05/18/20 24 Active levothyroxine 125 mcg tablet TAKE 1 TABLET BY MOUTH ONCE DAILY DOSE INCREASE 90 Tablet 2 10/01/19 25 Active Active Problems Problem Noted Date Diagnosed Date Pre-diabetes 10/14/2022 Sprain of calcaneofibular ligament of ankle 12/2020 Grief, loss of brother 11/201911/29/2020 Lumbar disc disease 08/28/2020 Overview (08/28/2020): Result type: MRI Lumbar Spine W/O Contrast Result date: May 04, 2020 18:20 EDT Result status: Auth (Verified) Result title: MRI Lumbar Spine W/O Contrast Performed by: Nirmala Jc MD on May 07, 2020 9:55 EDT Verified by: Nirmala Jc MD on May 07, 2020 9:55 EDT Encounter info: [id number], [facility] [place] [facility], 05/04/2020 - * Final Report * Reason For Exam [facility] Electronic Order: L5/1 RIGHT LEG RADICULOPATHY/ HNP, LOW BACK PAIN M54.5 - LOW BACK PAIN;[facility] Electronic Order: L5/1 RIGHT LEG RADICULOPATHY/ HNP, LOW BACK PAIN M54.5 - LOW BACK PAIN RESULT: MRI Lumbar Spine W/O Contrast [facility] VISIT NUMBER :[id number] Patient Name : Va Chandler Date of : 1970 Date of Exam : 05/04/2020 Referring Physician : FRANCINE GASTELUM [facility] ([facility]) [address], [address] [place] [address] Exam : MR - LUMBAR SPINE (C-) CPT 92745 - Room Description : [facility] 3.0T Technique : Sag T1 FLAIR, Sag T2, Ax T2, Ax T1, Sag STIR Final Report INDICATION: Right L5-S1 radiculopathy. Low back pain. Assess for disc herniation. Patient reports lifting injury 4 months ago per technologist notes. COMPARISON: None. FINDINGS: The vertebral bodies are normal in height and sagittal alignment. There is mild loss of intervertebral disc height at L3-L4, with mild loss of intervertebral disc T2 signal. Minimal degenerative endplate marrow signal changes at L3-L4 and L4-L5. Otherwise, marrow and disc signal appear normal. The visualized distal spinal cord and conus medullaris are normal. The conus medullaris terminates at L1. The paraspinal and prevertebral soft tissues are normal. At L1-L2, there is no spinal canal or neural foraminal stenosis. At L2-L3, there is no spinal canal or neural foraminal stenosis. At L3-L4, there is a minimal disc bulge causing no significant spinal canal or neural foraminal stenosis. At L4-L5, there is mild facet arthropathy, right greater than left, and a minimal disc bulge. However, there is no significant narrowing of the spinal canal or neural foramina. At L5-S1, there is facet arthropathy, right greater than left. There is no spinal canal or neural foraminal stenosis. IMPRESSION: Mild lumbar spine degenerative changes as described above with no evidence for nerve root compression. No significant spinal canal or neural foraminal stenosis. ----- PHYSICIAN : NIRMALA JC MD (Signature on file) 05/07/2020 Signature Line Dictated By: Nirmala Jc MD Dictated Date/Time: 05/07/20 9:55 am Reviewed By: Nirmala Jc MD Signed By: Nirmala Jc MD Signed Date/Time: 05/07/20 9:55 am Transcribed By: TS Transcribed Date/Time: 05/07/20 9:55 am MRI Lumbar Spine W/O Contrast This document has an image Primary osteoarthritis involving multiple joints 07/12/2020 Anxiety and depression 02/08/2020 S/P LYLY (total abdominal hysterectomy) 09/2017 0 12/17/2017 Primary insomnia 12/17/2017 Multinodular goiter 08/25/2016 Family history of colon cancer, dad diagnosed ar ound 80 08/25/2016 S/P michelle 08/25/2016 Hypothyroid an thyroid nodule, endo SMA 05/11/20 13 Encounters Date Type Department Care Team Description 09/14/2024 2:20 PM EST Office Visit [facility] [address] [place] [id number] Janet Oh Encounter for dental examination and cleaning with abnormal findings (Primary Dx); Stage 4 grade C generalized periodontitis per AAP/EFP 2017 classification from Last 3 Months Immunizations Immunization Administration Dates Next Due Flu, Cell Culture based, Pre servative Free, 6m+, Flucelvax 04/26/2020 Flu, Preservative Free 04/09/2021 Influenza (FLUBLOK),recombin ant,injectable,preservative Free 05/18/2024 MODERNA COVID-19 VACCINE BIVALENT, BLUE CAP, 6M+ 07/01/2022 Moderna COVID-19 Vaccine, re d cap blue label, 12+ Primary Series 07/30/2021 PNEUMOCOCCAL CONJUGATE PCV 20 (Prevnar) 07/01/20 22 Pfizer COVID-19 (Comirnaty), Mrna, Lnp-s, Pf, Ata-sucrose, 30 Mcg/0.3 Ml, 12yr+ 05/18/2024 TDAP 11/13/2023 ZOSTER VACCINE, RECOMBINANT (SHINGRIX) 4 Family History Medical History Relation Name Comments Diabetes Mother Hypertension Mother Relation Name Status Comments Mother Social History Tobacco Use Types Packs/Day Years Used Date Smoking Tobacco: Every Day Cigarettes 0.3 15 Smokeless Tobacco: Never Tobacco Cessation:Ready to Q uit: Not Asked; Counseling Given: Not Answered Comments:8 cigarrtes Alcohol Use Standard Drinks/Week Comments No 0 (1 standard drink = 0.6 oz pur e alcohol) Social Connections Answer Date Recorded Connectedness 1 11/13/2023 Financial Resource Strain Answer Date R ecorded Financial Resource Strain 1 2023 Stress Answer Date Recorded Stress 1 11/13/2023 Physical Activity Answer Date Recorded Physical Activity 0 03/16/2019 Food Insecurity Answer Date Recorded Food 1 11/13/2023 Transportation Needs Answer Date Record ed Transportation 1 11/13/2023 Housing Stability Answer Date Recorded Housing 1 11/13/2023 Safety and Environment Answer Date Logan rded Safety 1 11/13/2023 Utilities Answer Date Recorded Utilities 1 11/13/2023 Employment Answer Date Recorded Stress 0 10/14/2021 Comments No Sex and Gender Information Value Date Recorded Sex Assigned at Female 12/17/2017 7:37 PM PDT Legal Sex Female 11:36 AM PDT Gender Identity Female 12/17/2017 7:37 PM PDT Sexual Orientation Straight 12/17/2017 7: 37 PM PDT Last Filed Vital Signs Vital Sign Reading Time Taken Comments Blood Pressure 134/70 05/18/2024 3:03 PM EDT Pulse 68 05/18/2024 3:03 PM EDT Temperature 36.8 ??C (98.2 ??F) 05/18/2024 3:03 PM ED T Respiratory Rate 16 05/18/2024 3:03 PM EDT Oxygen Saturation 98% 05/18/2024 3:03 PM EDT Inhaled Oxygen Concentration - - Weight 68.5 kg (151 lb) 05/18/2024 3:03 PM EDT Height 157.5 cm (5' 2 ) 05/18/2024 3:03 PM EDT Body Mass Index 27.62 05/18/2024 3:03 PM EDT Plan of Treatment Upcoming Encounters Date Type Department Care Team (Late st Contact Info) Description 12/12/2024 1:30 PM EDT Office Visit [facility] [address] [place] [address] Paulie West DMD [address] [place] [address] Health Maintenance Due Date Last Done Comments Anxiety Screening 1970 CT Colonography 2013 Colonoscopy 2013 Colorectal Cancer Screening 2013 FIT/gFOBT 2013 Fecal DNA 2013 Flexible Sigmoidoscopy 2013 Imm-Zoster, Recombinant (2 of 2) 04/15/2024 02/19/20 Depression Monitoring 05/21/2024 02/19/2024 , 11/13/2023, 07/01/2022, Additional history exists Alcohol and Drug Screen 07/27/2024 11/13/19 24, 10/14/2022, 07/01/2022, Additional history exists Tobacco Cessation Counseling (#1) 08/11/2024 Annual Preventive Care Visit 11/12/2024, 10/14/2022, 11/29/2020, Additional history exists Diabetes Screening 11/12/2024 11/13/2023, 0 11/13/2023, 10/14/2022, Additional history exists Lipid Screening 11/12/2024 11/13/2023, 0307/2022, 04/01/2022, Additional history exists Medicare Annual Wellness Visit 11/12/2024 0 11/13/2023, 10/14/2022, 11/29/2020 TSH Monitoring 11/12/2024 11/13/2023, 07/1 01/2023, 10/14/2022, Additional history exists Breast Cancer Screening (Mammogram) 03/23/2025 03/23/2024, 08/31/2021, 08/31/2021, Additional history exists Hypertension Screening (#1) 05/18/2025 Dental BW 09/16/2025 09/14/2024, 04/17/2022 Dental Examination 09/16/2025 09/14/2024, 04/17/2022 Dental Perio Charting 09/16/2025 09/14/2024, 022 Dental Prophy 09/16/2025 09/14/2024, 04/17/2022 Dental FMX/Pano 04/19/2027 04/17/2022 Imm-DTaP/Tdap/Td (2 - Td or Tdap) 11/12/2033 024 HIV Screening Completed 06/10/2018 Hepatitis C Screening Completed 06/10/2018 Imm-Pneumococcal Completed 07/01/2022 [id number] Completed 05/18/2024, 120 12/2021, 07/30/2021, Additional history exists Imm-Influenza Completed 05/18/2024, 03/27, 04/26/2020 Imm-Hepatitis B Discontinued Procedures Procedure Name Priority Date/Time Associated Diagnosis Comments REFERRAL SCANNED DOCUMENT 10/27/2024 3:00 AM EDT OTHER ORDERS SCANNED DOCUMENT 09/29/2024 3:00 AM EST INTRAORAL - PERIAPICAL EACH ADD RADIOGRAPH IMAGE Routine 09/14/2024 2:20 PM EST Encounter for dental examination and cleaning with abnormal findings Stage 4 grade C generalized periodontitis per AAP/EFP 2017 classification INTRAORAL - PERIAPICAL FIRST RADIOGRAPHIC IMAGE Routine 09/14/2024 2:20 PM EST Encounter for dental examination and cleaning with abnormal findings Stage 4 grade C generalized periodontitis per AAP/EFP 2017 classification PERIODIC ORAL EVALUATION ESTABLISHED PATIENT Routine 09/14/2024 2:20 PM EST Encounter for dental examination and cleaning with abnormal findings Stage 4 grade C generalized periodontitis per AAP/EFP 2017 classification DENTAL CASE MANAGEMENT - MOTIVATIONAL INTV Routine 09/14/2024 2:20 PM EST Encounter for dental examination and cleaning with abnormal findings Stage 4 grade C generalized periodontitis per AAP/EFP 2017 classification PROPHYLAXIS - ADULT Routine 09/14/2024 2 :20 PM EST Encounter for dental examination and cleaning with abnormal findings Stage 4 grade C generalized periodontitis per AAP/EFP 2017 classification COMP PERIODONTAL EVALUATION - NEW/EST PATIENT Routine 09/14/2024 2:20 PM EST Encounter for dental examination and cleaning with abnormal findings Stage 4 grade C generalized periodontitis per AAP/EFP 2017 classification BITEWINGS - FOUR RADIOGRAPHIC IMAGES Routine 09/14/2024 2:20 PM EST Encounter for dental examination and cleaning with abnormal findings Stage 4 grade C generalized periodontitis per AAP/EFP 2017 classification CARIES RISK ASSESSMENT & DOC FINDING HIGH RISK Routine 09/14/2024 2:20 PM EST Encounter for dental examination and cleaning with abnormal findings Stage 4 grade C generalized periodontitis per AAP/EFP 2017 classification NUTRITIONAL COUNSELING CONTROL OF DENTAL DISEASE Routine 09/14/2024 2:20 PM EST Encounter for dental examination and cleaning with abnormal findings Stage 4 grade C generalized periodontitis per AAP/EFP 2017 classification ORAL HYGIENE INSTRUCTIONS Routine 09/14/2024 2:20 PM EST Encounter for dental examination and cleaning with abnormal findings Stage 4 grade C generalized periodontitis per AAP/EFP 2017 classification ORAL CANCER SCREENING Routine 09/14/2024 2:20 PM EST Encounter for dental examination and cleaning with abnormal findings Stage 4 grade C generalized periodontitis per AAP/EFP 2017 classification CASE PRESENTATION SUBS DTL & EXTENSIVE TX PLN Routine 09/14/2024 2:20 PM EST Encounter for dental examination and cleaning with abnormal findings REFERRAL SCANNED DOCUMENT 08/22/2024 3:00 AM EST REFERRAL SCANNED DOCUMENT 08/16/2024 3:00 AM EST MAMMO DIGITAL SCREEN LEVI W CAD 3D Routine 03/23/2024 3:00 AM EDT Breast cancer screening by mammogram TSH W/RFLX FREE T4 Routine 11/13/2023 2: 21 PM EDT Routine general medical examination at a health care facility Skin lesions Primary osteoarthritis involving multiple 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 Pre-diabetes COMPREHENSIVE METABOLIC PANEL Routine 11/13/2023 2:21 PM EDT Routine general medical examination at a health care facility Skin lesions Primary osteoarthritis involving multiple 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 Pre-diabetes LIPID PANEL Routine 11/13/2023 2:21 PM EDT Routine general medical examination at a health care facility Skin lesions Primary osteoarthritis involving multiple 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 Pre-diabetes Full INTRAORAL - COMP SERIES OF RADIOGRAPHIC IMAGES Routine 04/17/2022 2:20 PM EDT Chronic periodontitis, generalized, severe ANTIBODY HIV-1&HIV-2 SINGLE RESULT Routine 06/10/2018 4:38 PM EST Primary insomnia Malaise and fatigue Hypothyroidism due to acquired atrophy of thyroid HEPATITIS A,B,C PANEL Routine 06/10/2018 4:38 PM EST Primary insomnia Malaise and fatigue Hypothyroidism due to acquired atrophy of thyroid from Last 3 Months or Most Recently Relevant to Health Maintenance Results * REFERRAL SCANNED DOCUMENT (10/27/2024 3:00 AM EDT) Only the most recent of3 resultswithin the time period is included. 10/27/2024 3:00 AM EDT Megan Ani PA-C SCAN REFERRAL Final Result * OTHER ORDERS SCANNED DOCUMENT (09/29/2024 3:00 AM EST) 09/29/2024 3:00 AM EST Megan Katiakin PA-C SCAN OTHER ORDERS Final Resu lt * MAMMO DIGITAL SCREEN LEVI W CAD 3D (03/23/2024 3:00 AM EDT) 03/23/2024 3:00 AM EDT Megan Ani PA-C IMG MAMMO Edited Resul t - Final [facility] Corporate Office [address], [address] [place] [address], * TSH W/RFLX FREE T4 (11/13/2023 2:21 PM EDT) TSH W/REFLEX TO FT4 1.28 0.40 - 4.50 mIU/L [facility] Comment: ?Reference Range ?> or = 20 Years ??0.40-4.50 ? Ranges ?First trimester ?0.26-2.66 ?Second trimester ?? 0.55-2.73 ?Third trimester ?0.43-2.91 Blood Blood / Unknown 11/13/2023 2 :21 PM EDT 11/13/2023 2:21 PM EDT Narrative [facility] - 11/14/2023 7:22 AM EDT FASTING:NO Megan Law PA-C LAB - BLOOD DRAW Edited Resu lt - Final [facility] [address] [address], [email or web address] [facility] [address] [place] [address] * (ABNORMAL) LIPID PANEL (11/13/2023 2:21 PM EDT) [facility] Signature CHOLESTEROL, TOTAL 141 <200 mg/dL markedup [facility] HDL CHOLESTEROL 29(L) > OR = 50 mg/dL [employer] TRIGLYCERIDES 266(H) <150 mg/dL [facility] Comment: If a non-fasting specimen was collected, consider repeat triglyceride testing on a fasting specimen if clinically indicated. Chago et al. J. of Clin. Lipidol. 2015;9:129-169. LDL-CHOLESTEROL 77 99 mg/dL (calc) [employer] Comment: Reference range: <100 Desirable range <100 mg/dL for primary prevention; ?? <70 mg/dL for patients with CHD or diabetic patients with > or = 2 CHD risk factors. LDL-C is now calculated using the Tab-Cornelio calculation, which is a validated novel method providing better accuracy than the Friedewald equation in the estimation of LDL-C. Tab SS et al. OSCAR. 2013;310(19): 0365-2345 (http://education.RubyRide.Phenomix/faq/RAS432) CHOL/HDLC RATIO 4.9 <5.0 (calc) [facility] NON-HDL CHOLESTEROL 112 <130 mg/dL (calc) [facility] [facility] Comment: For patients with diabetes plus 1 major ASCVD risk factor, treating to a non-HDL-C goal of <100 mg/dL (LDL-C of <70 mg/dL) is considered a therapeutic option. Blood Blood / Unknown 11/13/2023 2 :21 PM EDT 11/13/2023 2:21 PM EDT Narrative [facility] - 11/14/2023 7:22 AM EDT FASTING:NO us Megan Law PA-C LAB - BLOOD DRAW Final Resul t [facility] [address] [address], [employer] [address] [place] [address] * COMPREHENSIVE METABOLIC PANEL (11/13/2023 2:21 PM EDT) Pathologist [facility] GLUCOSE 100 65 - 139 mg/dL markedup [facility] Comment: ?Non-fasting reference interval UREA NITROGEN (BUN) 17 7 - 25 mg/dL markedup [facility] CREATININE (blood) 0.85 0.50 - 1.03 mg/dL markedup [facility] EGFR 81 > OR = 60 mL/min/1. 73m2 [employer] BUN/CREATININE RATIO SEE NOTE: markedup [facility] Comment: ?? Not Reported: BUN and Creatinine are within ?? reference range. ? SODIUM 137 135 - 146 mmol/L markedup [facility] POTASSIUM 4.3 3.5 - 5.3 mmol/L [employer] CHLORIDE 105 98 - 110 mmol/L markedup [facility] CARBON DIOXIDE 23 20 - 32 mmol/L markedup [facility] CALCIUM 9.2 8.6 - 10.4 mg/dL markedup [facility] PROTEIN, TOTAL 7.0 6.1 - 8.1 g/dL [email or web address] [facility] ALBUMIN 4.2 3.6 - 5.1 g/dL markedup [facility] GLOBULIN 2.8 1.9 - 3.7 g/dL (calc) markedup [facility] ALBUMIN/GLOBULI N RATIO 1.5 1.0 - 2.5 (calc) markedup [facility] BILIRUBIN, TOTAL 0.3 0.2 - 1.2 mg/dL markedup [facility] ALKALINE PHOSPHATASE 143 37 - 153 U/L markedup [facility] AST 18 10 - 35 U/L [employer] ALT 18 6 - 29 U/L markedup [facility] Blood Blood / Unknown 11/13/2023 2 :21 PM EDT 11/13/2023 2:21 PM EDT Narrative [facility] - 11/14/2023 7:22 AM EDT FASTING:NO Megan Law PA-C LAB - BLOOD DRAW Edited Resu lt - Final Performing Organization Address [facility]/ZIP Co de Phone Number [facility] [address] [address], [employer] [facility] [address] [place] [address] * (ABNORMAL) HEPATITIS A,B,C PANEL (06/10/2018 4:38 PM EST) HEPATITIS B SURFACE ANTIBODY POSITIVE(A) NEGATIVE [facility] HEPATITIS B SURFACE ANTIGEN NEGATIVE NEGATIVE [facility] Comment: Over the counter supplements containing high doses of biotin may interfere with this assay. ??If interference is suspected, patients shoud be retested after refraining from biotin supplements for 72 hours. HEPATITIS C VIRUS DIAGNOSTIC NEGATIVE NEGATIVE [facility] HEPATITIS A ANTIBODY TOTAL POSITIVE(A) NEGATIVE [facility] Comment: Over the counter supplements containing high doses of biotin may interfere with this assay. ??If interference is suspected, patients shoud be retested after refraining from biotin supplements for 72 hours. HEPATITIS B CORE ANTIBODY NEGATIVE NEGATIVE [facility] Blood specimen (specimen) Blood / Unknown 06/10/2018 4:38 PM EST 06/10/2018 9:42 PM EST Narrative [facility] - 06/10/2018 11:08 PM EST [email or web address], a member of [address] [address] [employer] - Kenia Murray MD [place] [id number] ORD# [id number] Megan Law PA-C LAB - BLOOD DRAW Edited Resu lt - Final Performing Organization Address City/[facility]/ZIP Co de Phone Number [address] [address], * HIV-1 & HIV-2 ANTIBODIES (06/10/2018 4:38 PM EST) HIV 1 AND 2 ANTIBODY SCREEN NEGATIVE NEGATIVE [facility] Comment: This assay is a 4th generation assay allowing for earlier detection of HIV infection by detecting the presence of the HIV-1 p24 antigen as well as the traditional antibodies to HIV type 1 (including group O) and type 2. ??Use of a 4th generation assay is the current CDC recommendation for HIV screening. Blood specimen (specimen) Blood / Unknown 06/10/2018 4:38 PM EST 06/10/2018 9:42 PM EST Narrative [employer] - 06/10/2018 11:37 PM EST [email or web address], [place] [address] [employer] - Kenia Murray [place] [id number] ORD# [id number] Megan Law PA-C LAB - BLOOD DRAW Final Resul t [employer] [address], from Last 3 Months or Most Recently Relevant to Health Maintenance Insurance [place] [facility] Member Subscriber Plan / Payer (Ef fective 2024-Present) Name:Ramesh Va Relation to Subscriber:Self Name:Va Chandler Payer ID:[id number] Group ID:Not on file Type:Indemnity Address: [address] [place] [address] [facility] - DENTAL Care Teams Sterilization Specialist Relationship Specialty Start Date End Date Megan Law PA-C [address] [place] [address] PCP - General Internal Medicine 12/15/16
== END 2024-11-07 15:03 | disposition home or self-care (01) ==
LOC: HO.PMC 14:35
PROVIDERS: PCP Physician Assistant; Visit Provider Anesthesiology
DX: M19.012 Primary osteoarthritis, left shoulder (principal); M25.511 Pain in right shoulder; M19.019 Primary osteoarthritis, unspecified shoulder; M25.512 Pain in left shoulder; G89.4 Chronic pain syndrome
CPT/HCPCS: 99213

== ENCOUNTER → 2024-11-07 14:35 | Outpatient (BNVA) | payer OTHER, MEDICAID, SELFPAY | PROVIDERS: PCP Physician Assistant; Visit Provider Anesthesiology | DX: M19.012 Primary osteoarthritis, left shoulder (principal); M25.511 Pain in right shoulder; G89.4 Chronic pain syndrome | CPT/HCPCS: 99212 ==